=== PATIENT | female | born 1990 | race Hispanic/Latino ===

== ENCOUNTER 2017-09-08 22:04 | Emergency (ER) | payer SELFPAY ==
[2017-09-08 23:32] LABS: BASOPHILS % (AUTO) 0.5 % (0.0-5.0); EOSINOPHILS % (AUTO) 1.2 % (0.0-8.0); LYMPHOCYTES % (AUTO) 29.6 % (21.0-51.0); MEAN CORPUSCULAR HEMOGLOBIN 30.6 pg (27.0-33.0); MEAN CORPUSCULAR HGB CONC 34.3 g/dL (32.0-36.0); MEAN CORPUSCULAR VOLUME 89.2 fL (79-99); MONOCYTES % (AUTO) 6.1 % (3.0-13.0); NEUTROPHILS % (AUTO) 62.6 % (40.0-77.0); PLATELET COUNT (AUTO) 219 K/uL (130-400); RED BLOOD CELL COUNT(AUTO) 4.37 MIL/uL (4.00-5.50); RED CELL DISTRIBUTION WIDTH 12.7 % (11.0-15.5); WHITE BLOOD COUNT (AUTO) 6.8 K/uL (4.8-10.8)
[2017-09-08 23:39] LABS: CREATININE 0.6 mg/dL (0.5-1.5); POTASSIUM 4.8 mmol/L (3.5-5.1)
[2017-09-08] MEDS ORDERED: SODIUM CHLORIDE 0.9% 1000ML 1,000 ML IV ONE (23:41)
[2017-09-08] MEDS ORDERED: ACETAMINOPHEN EXTRA STRENGTH 500 MG TABLET ONE (23:42)
[2017-09-08 23:44] LABS: ALBUMIN 4.3 g/dL (3.5-5.0); BILIRUBIN,TOTAL 0.4 mg/dL (0.2-1.0)
[2017-09-09 01:21] LABS: HCG,QUAL RESULT NEGATIVE (NEGATIVE)
[2017-09-09 01:25] LABS: BILIRUBIN,URINE Small (NEGATIVE); GLUCOSE, URINE (UA) Negative (NEGATIVE); KETONES,URINE Negative (NEGATIVE); LEUKOCYTE ESTERASE ,URINE Moderate (NEGATIVE); NITRATE,URINE Positive (NEGATIVE); OCCULT BLOOD,URINE Moderate (NEGATIVE); PROTEIN,URINE POS 2+ (NEGATIVE); UROBILINOGEN,URINE 0.2 mg/dL (0.2-1.0)
[2017-09-09 01:26] LABS: APPEARANCE,URINE TURBID (CLEAR); COLOR,URINE Red (YELLOW)
[2017-09-09 01:27] LABS: BACTERIA,URINE None Seen /HPF (None Seen); RBC,URINE Full Field /HPF (0-1); SQUAMOUS EPITHELIAL CELL,UR Few /LPF (0-2)
[2017-09-09 01:31] LABS: AMPHET/METH SCREEN,URINE NEGATIVE (NEGATIVE); BARBITURATE SCREEN, URINE NEGATIVE (NEGATIVE); BENZODIAZEPINES SCREEN,URINE NEGATIVE (NEGATIVE); CANNABINOID SCREEN,URINE NEGATIVE (NEGATIVE); COCAINE SCREEN,URINE NEGATIVE (NEGATIVE); OPIATE SCREEN,URINE NEGATIVE (NEGATIVE); PHENCYCLIDINE SCREEN,URINE NEGATIVE (NEGATIVE)
[2017-09-09] MEDS ORDERED: DiphenhydrAMINE HCL 50 MG/ML VIAL ONE ×2 (01:42→01:46)
[2017-09-09] MEDS ORDERED: PROCHLORPERAZINE EDISYLATE 10 MG/2 ML VIAL ONE ×2 (01:42→01:46)
== END 2017-09-09 02:49 | disposition home or self-care (01) ==
LOC: EDH 22:04
DX: R56.9 Unspecified convulsions (principal); R51 Headache; F43.10 Post-traumatic stress disorder, unspecified; Z88.6 Allergy status to analgesic agent
CPT/HCPCS: 36415; 70450; 80053; 80305; 81001; 81025; 85025; 96361; 96374; 96375; 99285; J0780 ×2; J1200 ×2; J7030

== ENCOUNTER 2019-04-09 08:39 | Emergency (ER) | payer MEDICAID ==
[2019-04-09] MEDS ORDERED: DEXAMETHASONE SOD PHOSPHATE 10MG/ML 1ML VIAL ONE (09:02)
[2019-04-09] MEDS ORDERED: LIDOCAINE HCL-MPF 1% 2ML VIAL ONE (09:02)
[2019-04-09] MEDS ORDERED: CEFTRIAXONE SODIUM 1 GM ONE (09:02)
== END 2019-04-09 10:12 | disposition home or self-care (01) ==
LOC: EDH 08:39
DX: J06.9 Acute upper respiratory infection, unspecified (principal); Z87.891 Personal history of nicotine dependence; Z90.710 Acquired absence of both cervix and uterus; Z90.49 Acquired absence of other specified parts of digestive tract; Z98.890 Other specified postprocedural states; Z88.6 Allergy status to analgesic agent
CPT/HCPCS: 96372 ×2; 99284; J0696; J1100; J3490

== ENCOUNTER 2019-06-27 07:09 | Day surgery (SDC) | payer MEDICAID ==
[~2019-06-27] VITALS: Ht 170.2 cm; Wt 59.0 kg
[~2019-06-27 07:09] MED LIST: ALPR0.5T PO; COQ10 PO; IRON1CAP30 PO; PROM25TA7 PO; SODIUM CHLORIDE 0.9% 1000ML 1,000 ML IV ONE
[2019-06-27 07:57] VITALS: BP 101/72
[2019-06-27] MEDS ORDERED: PROPOFOL 10 MG/ML 20ML VIAL IV ONE (09:16)
[2019-06-27 09:36] VITALS: BP 112/67
[2019-06-27 09:50] VITALS: BP 131/68
== END 2019-06-27 10:02 | disposition home or self-care (01) ==
LOC: ENDO 07:09 → DAH 07:09 → ENDO 10:02
PROVIDERS: ATTEND Internal Medicine
DX: R10.13 Epigastric pain (principal); K31.89 Other diseases of stomach and duodenum; R11.2 Nausea with vomiting, unspecified; F41.9 Anxiety disorder, unspecified; F32.9 Major depressive disorder, single episode, unspecified; Z90.49 Acquired absence of other specified parts of digestive tract; Z98.890 Other specified postprocedural states; Z79.899 Other long term (current) drug therapy; Z90.710 Acquired absence of both cervix and uterus; Z88.8 Allergy status to other drugs, medicaments and biological substances
CPT/HCPCS: 43239; A4215; A4221; A4222; A4223; A4606; A4620; A4663; J2704; J7030

== ENCOUNTER 2024-11-08 17:05 | Observation (INO) | payer MEDICAID ==
[~2024-11-08] VITALS: Ht 175.3 cm; Wt 80.6 kg
[~2024-11-08 17:05] MED LIST changes: -SODIUM CHLORIDE 0.9% 1000ML 1,000 ML IV ONE
--- NOTE | 2024-11-08 17:28 | ERN ---
ED Note History of Present Illness Stated Complaint: CP, COUGH, HEADACHE, BODY ACHES Chief Complaint: Flu Symptoms Time Seen by MD: 17:05 Time Seen by Midlevel: 17:05 Dictation: The patient is a 34-year-old female with a history of IBS, hysterectomy, c holecystectomy who presents to the emergency department with complaints of headache, body aches, nonproductive cough, on and off fevers, chest pain with coughing onset over a week ago. Allergies: Coded Allergies: ibuprofen (Unverified Allergy, Unknown, 06/19/19) ketorolac (Unverified Allergy, Unknown, 06/19/19) tramadol (Unverified Allergy, Unknown, 06/19/19) Home Meds Reported Medications Promethazine HCl (Promethazine HCl) 25 Mg Tablet, 25 MG PO QIDP PRN for NAUSEA, TAB 06/26/19 [Coq10] No Conflict Check, 1 TAB PO BID 06/26/19 Iron Fum & Ps Cmp/Vit C & B (Integra Capsule) 1 Each Capsule, 1 EACH PO DAILY, CAP 06/26/19 Alprazolam (Xanax) 0.5 Mg Tablet, 0.5 MG PO BID, TAB 06/26/19 Past Medical History Past Medical History: No Pertinent History Surgical History: Appendectomy, Hysterectomy, Cholecystectomy, RN Note Reviewed/Agreed w/PFSH: Yes Review of System Dictation Constitutional: Negative for ,chills, and weight loss positive for fever Eyes: Negative for injury, pain,redness, and discharge ENT: Negative for injury,pain or swelling Cardiovascular: Negative for palpitations, and edema positive for chest pain Respiratory: Negative for shortness of breath, , and wheezing, positive for cough Abdomen/GI: Negative for abdominal pain, nausea, vomiting, diarrhea, and constipation Back: Negative for injury and pain : Negative for injury, bleeding and discharge MS/Extremity: Negative for injury and deformity Skin: Negative for rash, and discoloration Neuro: Negative for weakness, numbness, tingling, and seizure positive for headache Psych: Negative for suicide ideation, homicidal ideation, and hallucinations Initial Vital Sign VS Vital Signs Date Time Temp Pulse Resp B/P (MAP) Pulse Ox O2 Delivery O2 Flow Rate FiO2 11/08/24 17:12 99.3 107 20 114/83 96 Room Air 0 Physical Exam Dictation Vital Signs reviewed General Appearance: Alert, oriented x 3, no acute distress, well developed, nourished. Head and Face: non-traumatic. Eyes: PERRL, pink conjunctivas, eyelid no trauma, anterior chamber with arcus senilis. Ears: Pinnas intact and no signs of trauma or erythema ear canals clear and no discharge TM no erythema Nose: No discharge, no bleeding. Oropharynx: Mouth normal, tongue pink. pharynx clear,no erythema, tonsils no exudates, no abscesses noted, mucous membrane moist Neck: Supple, non-tender, no thyromegaly, no masses, no JVD, no bruits Breast:Deferred Chest:No tenderness, no crepitus, no paradoxical movement, no retractions Lungs:Clear, well-ventilated, symmetric, no rales, no wheezing, no rhonchi, no stridor, good breath sounds bilaterally Heart: Regular rate, regular rhythm, no murmur, no gallops Vascular: no peripheral edema, Abdomen: Soft, positive bowel sounds, nondistended, no guarding, nontender, no rebound, no masses no hepatomegaly, no splenomegaly, no Hopkins's sign, no hernias. Rectal: Deferred Genital: Deferred Neurological: Normal speech, motor function intact, sensory function intact Musculoskeletal: Neck nontender, full range of motion, back nontender, full range of motion, Extremities: nontender, full range of motion Skin: Color pink, dry, no turgor, no rash, no lacerations, no abrasions, no contusions. Lymphatic: Deferred Results (Laboratory/Radiology) Laboratory/Radiology Laboratory Tests Test 11/08/24 17:18 11/08/24 19:05 Influenza Type A Antigen Negative For Type A Influenza Type B Antigen Negative For Type B SARS-CoV-2 Antigen (Rapid) PRESUMPTIVE NEGATIVE White Blood Count 8.5 K/uL (4.8-10.8) Red Blood Count 4.79 MIL/uL (4.00-5.50) Hemoglobin 14.4 g/dL (12.0-16.0) Hematocrit 42.5 % (36-48) Mean Corpuscular Volume 88.7 fL (79-99) Mean Corpuscular Hemoglobin 30.1 pg (27.0-33.0) Mean Corpuscular Hemoglobin Concent 33.9 g/dL (32.0-36.0) Red Cell Distribution Width 12.3 % (11.0-15.5) Platelet Count 221 K/uL (130-400) Mean Platelet Volume 10.2 fL (7.5-10.5) Immature Granulocyte % (Auto) 0.4 % (0-1) Neutrophils (%) (Auto) 78.3 % (40.0-77.0) H Lymphocytes (%) (Auto) 13.5 % (21.0-51.0) L Monocytes (%) (Auto) 6.9 % (3.0-13.0) Eosinophils (%) (Auto) 0.7 % (0.0-8.0) Basophils (%) (Auto) 0.2 % (0.0-5.0) Neutrophils # (Auto) 6.7 K/uL (1.8-7.7) Lymphocytes # (Auto) 1.2 K/uL (1.0-4.8) Monocytes # (Auto) 0.6 K/uL (0.1-1.0) Eosinophils # (Auto) 0.06 K/uL (0.00-0.70) Basophils # (Auto) 0.02 K/uL (0.00-0.20) Absolute Immature Granulocyte (auto 0.03 K/uL (0-1) Nucleated Red Blood Cells 0.0 % (0.0-0.19) Sodium Level 137 mmol/L (136-145) Potassium Level 3.9 mmol/L (3.5-5.1) Chloride Level 101 mmol/L (101-111) Carbon Dioxide Level 23 mmol/L (21-32) Blood Urea Nitrogen 10 mg/dL (7-18) Creatinine 0.9 mg/dL (0.5-1.0) Glomerular Filtration Rate Calc 86 mL/min (>90) Random Glucose 93 mg/dL (70-105) Total Calcium 9.5 mg/dL (8.5-10.1) Total Creatine Kinase 69 U/L (21-232) Troponin I High Sensitivity < 4 ng/L (4-50) L REASON: cough ORDERING PHYSICIAN: GUNJAN LAINEZ PROCEDURE: CXR1VW - CHEST 1VW PORTABLE CHEST RADIOGRAPH INDICATION: cough COMPARISON: None FINDINGS: Heart size is normal. The pulmonary vascularity and left hilum appear normal. Coalescent right perihilar opacities. No significant pleural effusion noted. No pneumothorax detected. IMPRESSION: Right perihilar pneumonia. Follow-up chest radiograph is advised in order to ensure resolution. Labs Reviewed?: Yes EKG: (+) rhythm (Sinus rhythm) EKG Comment: Date:11/08/2024 Time:1740 Ventricular rate:94 CT interval:144 QRS duration:88 QT/QTc:337 EKG interpretation: Sinus rhythm Reviewed by ED Attending who STEMI ED Course ED Course Orders Procedure Category Date Status Time Covid19 (Sars Antigen LAB 11/08/24 Complete Rapid) 17:23 Influenza Type A & B, LAB 11/08/24 Complete Rapid 17:23 Acetaminophen 500mg PHA 11/08/24 Complete Tab (Tylenol 500mg T 17:30 Chest 1vw RAD 11/08/24 Resulted 17:23 12 Lead Ekg Tracing- EKG 11/08/24 Complete Technical 17:23 Cbc With Differential LAB 11/08/24 Complete 18:53 Troponin I High LAB 11/08/24 Complete Sensitivity 18:53 0.9%Nacl 1000ml (Ns PHA 11/08/24 Complete 1000ml) 19:00 Creatine Kinase, Total LAB 11/08/24 Complete 18:53 Basic Metabolic Panel LAB 11/08/24 Complete 18:53 Methylprednisolone PHA 11/08/24 Complete Succ 125mg (Solu-Medr 19:00 Ipratropium/Albuterol PHA 11/08/24 Complete Neb (Duoneb) 19:00 Ceftriaxone 1g Vial PHA 11/08/24 Complete (Rocephine 1g Inj) 19:00 Azithromycin 500mg+Ns PHA 11/08/24 Complete 250ml (Azithromyci 18:53 Admit Orders ADM 11/08/24 Verified 20:03 Edm Admit Bridge Order ADM 11/08/24 Verified 20:03 Current Medications Medications (Trade) Dose Ordered Sig/Jesús Route PRN Reason Start Time Stop Time Status Last Admin Dose Admin Acetaminophen (TYLenol 500MG TAB) 1,000 mg ONCE ONCE PO 11/08/24 17:30 11/08/24 17:31 DC 11/08/24 17:32 Albuterol (DUOneb) 1 UDVIAL ONCE ONCE IH 11/08/24 19:00 11/08/24 19:01 DC 11/08/24 19:53 Azithromycin 250 ml @ 250 mls/hr STAT STAT IVPB 11/08/24 18:53 11/08/24 19:52 DC 11/08/24 19:21 Ceftriaxone Sodium (ROCEphine 1G INJ) 1 gm ONCE ONCE IVPB 11/08/24 19:00 11/08/24 19:01 DC 11/08/24 19:13 Methylprednisolone Sodium Succinate (Solu-medROL 125MG) 125 mg ONCE ONCE IVP 11/08/24 19:00 11/08/24 19:01 DC 11/08/24 19:13 Sodium Chloride 1,000 ml @ 0 mls/hr ONCE ONCE IV 11/08/24 19:00 11/08/24 19:01 DC 11/08/24 19:13 Vital Signs Date Time Temp Pulse Resp B/P (MAP) Pulse Ox O2 Delivery O2 Flow Rate FiO2 11/08/24 19:54 92 18 11/08/24 17:32 99.3 11/08/24 17:12 99.3 107 20 114/83 96 Room Air 0 HEART Score Response (Comments) Value History: Low suspicion (0) 0 EKG: Normal 0 Age: < 45yrs (0) 0 Risk Factors: No known risk factors (0) 0 Initial Troponin: Normal limit (0) 0 Total 0 Medical Decision Making MDM MDM: The patient is a 34-year-old female with a history of IBS, hysterectomy, cholecystectomy who presents to the emergency department with complaints of headache, body aches, nonproductive cough, on and off fevers, chest pain with coughing onset over a week ago. CBC showed no leukocytosis, no anemia, chemistry showed no electrolyte imbalance, negative troponin, negative CK chest x-ray showed right perihilar pneumonia. Patient will be admitted for further management and treatment. Differential diagnosis: Pneumonia, pneumothorax, upper respiratory infection, COVID-19 Comorbidities: Hysterectomy, IBS, cholecystectomy Tests considered and not ordered secondary to shared decision making include: none Previous outside records reviewed: none Risk of complication and/or morbidity or mortality of patient management: The patient meets criteria for admission. Need for emergency major/minor surgery: No There are no social concerns with this patient. I independently interpreted the tests I ordered (labs, urinalysis, etc.). I discussed the case with the hospitalist for admission. [facility] who accepts admission I discussed the case with the following specialists: none. Historian: [email or web address]. I independently interpreted imaging studies and EKGs that I ordered (US, CT, XR, EKG, etc.). External chart review: none. Medical management and examination interpretation discussions were had by me with other qualified healthcare professionals as indicated for the patient's care. DX & DISP Disposition: Inpatient Decision to Admit Date: Nov 08, 2024 Decision to Admit Time: 20:08 Departure Impression: Primary Impression: Pneumonia Condition: Stable Referrals: ANITRA NO MD (PCP) I have reviewed the case, and I agree with, Diagnosis and Plan GUNJAN LAINEZ [facility] Nov 08, 2024 17:28
[2024-11-08] MEDS: acetaMINOPHEN 500 MG TABLET PO ONE (17:32)
--- NOTE | 2024-11-08 17:36 | EKG ---
[facility] Test Date: 2024-11-08 Test Time: 17:40:08 Pat Name: JONI HARRISON Department: [facility] Room: 430 Gender: Female Plumber Helper: [phone] : 1990 Requested By: GUNJAN LAINEZ Order Number: [id number] Reading MD: Gi Pate Measurements Intervals [place] Rate: 94 P: 55 [place]: 144 QRS: 41 QRSD: 88 T: 8 QT: 337 QTc: 423 Interpretive Statements Sinus rhythm No previous ECG available for comparison Electronically Signed On 11-09-2024 10:59:01 CDT by Gi Pate Please click the below link to view image of tracing.
[2024-11-08 18:06] LABS: COVID19 (SARS ANTIGEN RAPID) PRESUMPTIVE NEGATIVE (NEGATIVE); INFLUENZA TYPE A Negative For Type A (NEGATIVE); INFLUENZA TYPE B Negative For Type B (NEGATIVE)
[2024-11-08 18:43] VITALS: TEMP 98.4
--- NOTE | 2024-11-08 19:07 | HMCIMG ---
PORTABLE CHEST RADIOGRAPH INDICATION: cough COMPARISON: None FINDINGS: Heart size is normal. The pulmonary vascularity and left hilum appear normal. Coalescent right perihilar opacities. No significant pleural effusion noted. No pneumothorax detected. IMPRESSION: Right perihilar pneumonia. Follow-up chest radiograph is advised in order to ensure resolution.
[2024-11-08] MEDS: cefTRIAXone 1G VIAL IVPB ONE (19:13)
[2024-11-08] MEDS: 0.9%NACL 1000ML 1,000 ML IV ONE (19:13)
[2024-11-08] MEDS: Solu-medROL 125MG VIAL IVP ONE (19:13)
[2024-11-08 19:17] LABS: BASOPHILS # (AUTO) 0.02 K/uL (0.00-0.20); BASOPHILS % (AUTO) 0.2 % (0.0-5.0); EOSINOPHILS # (AUTO) 0.06 K/uL (0.00-0.70); EOSINOPHILS % (AUTO) 0.7 % (0.0-8.0); HEMATOCRIT 42.5 % (36-48); IMMATURE GRANULOCYTE ABSOLUTE 0.03 K/uL (0-1); LYMPHOCYTES # (AUTO) 1.2 K/uL (1.0-4.8); LYMPHOCYTES % (AUTO) 13.5 % (21.0-51.0); MEAN CORPUSCULAR HEMOGLOBIN 30.1 pg (27.0-33.0); MEAN CORPUSCULAR HGB CONC 33.9 g/dL (32.0-36.0); MEAN CORPUSCULAR VOLUME 88.7 fL (79-99); MONOCYTES # (AUTO) 0.6 K/uL (0.1-1.0); MONOCYTES % (AUTO) 6.9 % (3.0-13.0); NEUTROPHILS # (AUTO) 6.7 K/uL (1.8-7.7); NEUTROPHILS % (AUTO) 78.3 % (40.0-77.0); PLATELET COUNT (AUTO) 221 K/uL (130-400); RED BLOOD CELL COUNT(AUTO) 4.79 MIL/uL (4.00-5.50); RED CELL DISTRIBUTION WIDTH 12.3 % (11.0-15.5); WHITE BLOOD COUNT (AUTO) 8.5 K/uL (4.8-10.8)
[2024-11-08] MEDS: AZITHROMYCIN 500MG+NS 250ML 250 ML IVPB STA (19:21)
[2024-11-08 19:25] LABS: CREATININE 0.9 mg/dL (0.5-1.0); POTASSIUM 3.9 mmol/L (3.5-5.1)
[2024-11-08] MEDS: IpraTROPium/alBUTERol SULFATE 3 ML SOLUTION IH ONE (19:53)
[2024-11-08 19:54] VITALS: PULSE 92; RESP 18
--- NOTE | 2024-11-08 20:07 | NUR ---
TRANSFERED CARE TO [place] AT THIS TIME
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
--- NOTE | 2024-11-08 20:55 | NUR ---
PHARMACY CALLED AT THIS TIME, ORDER FOR TORADOL, PATIENT IS ALLERGIC
[2024-11-08] MEDS ORDERED: cefTRIAXone 1G VIAL 1 GM in 0.9%NACL 50ML 50 ML IV SCH (21:00)
[2024-11-08] MEDS ORDERED: PoTASSium chl 10% ELIXIR 20MEQ 20 MEQ/15 ML UDCUP PO PRN (21:00)
[2024-11-08] MEDS ORDERED: MAGNESIUM 2GM PREMIX 50ML 50 ML IV PRN (21:00)
[2024-11-08] MEDS ORDERED: ketOROlac 15MG/ML VIAL (15MG/ML) IV PRN (21:00)
[2024-11-08] MEDS ORDERED: PoTASSium chloRIDE 20MEQ/100ML 100 ML IV PRN (21:00)
[2024-11-08] MEDS ORDERED: NITROGLYCERIN 0.4 MG SL TAB SL PRN (21:00)
--- NOTE | 2024-11-08 21:09 | HP ---
[facility] PHYS[facility] Date of Service: Nov 08, 2024 Time of Service: 20:38 PCP: Julieta Wick HISTORY OF PRESENT ILLNESS: This is a 34-year-old female with past medical history of chronic back and neck pain, irritable bowel syndrome and asthma who presents to the ED for multiple complaints such as body aches, on and off fever, chest pain, cough, nausea ,shortness of breath and diarrhea started for almost 9 days and patient did not seek medical help until today.Patient reports she has not been eating and drinking well because she will throw up every time she eat or drink something so she stopped she said.Patient states she has occasional greenish phlegm . Patient states sampson is updated with her flu and Covid vaccine.Patient denies recent travel and no sick contacts. Seen and examined patient in the ER ,awake,alert and coherent appears uncomfortable and complaining of shortness of breath.Patient denies headache,palpitation,vomiting and abdominal pain.Patient has expiratory wheezes to right lung field per auscultation. Latest vital signs temperature 99.3, heart rate 96, blood pressure 116/72 saturation 98% on room air. Labs : gena trophils 78 and lymphocytes 13, the rest of the CBC is normal. Chemistry is normal. Troponin less than four. Influenza type a and B negative, SARs COVID negative. ECG result revealed sinus rhythm heart rate 94. Chest x-ray result revealed right perihilar pneumonia. While in the ER patient received Rocephin 1 g IV, azithromycin IV, albuterol DuoNeb, Solu-Medrol 125 mg IV and Tylenol 1000 mg p.o.. We will admit patient for further medical management. REVIEW OF SYSTEMS CONSTITUTIONAL: Complain of fever chills Denies or night sweats. No unintentional weight loss reported. NEUROLOGICAL: Denies headache, amaurosis fugax, motor weakness, sensory deficit, vertigo/spinning sensation, gait abnormalities, or tremors. ENT: No hearing loss, otalgia, otorrhea, rhinitis, rhinorrhea, hoarseness, or sore throat. CARDIOVASCULAR: Complain of chest pain Denies dyspnea on exertion, orthopnea, paroxysmal nocturnal dyspnea, palpitations, life-threatening arrhythmias, claudication. PULMONARY: Complain of productive cough and shortness of breaths Denies hemoptysis, pleuritic chest pain. SLEEP: Denies morning headaches, daytime somnolence or napping. Denies difficulty falling asleep, staying asleep, waking from sleep. Denies knowledge of snoring. GASTROINTESTINAL: Complain of nausea Denies any type of dysphagia to either liquids or solids. Denies vomiting, pyrosis, early satiety, abdominal pain, diarrhea, constipation, or changes in stool consistency or caliber. Denies coffee-ground emesis, hematemesis, hematochezia, or melanotic stools. GENITOURINARY: Denies frequency, urgency, nocturia, hematuria or incontinence (Storage/Irritative symptoms.) Low urinary stream, straining to void, urinary intermittency or hesitancy, splitting of the voiding stream, terminal dribbling. ENDOCRINOLOGIC: Denies polyuria, polydipsia, polyphagia or heat/cold intolerances. HEMATOLOGIC: Denies thrombophilia/previous clots, or coagulopathy/bleeding disorders. ONCOLOGIC: Denies personal history of malignancy. DERMATOLOGIC: Denies rashes or pruritus. PSYCHIATRIC: Denies any suicidal or homicidal ideation. Denies hallucinations. PAST MEDICAL HISTORY: [IBS, asthma, chronic back and neck pain ] PAST SURGICAL HISTORY: [ x2, hysterectomy, appendectomy and cholecystectomy ] PAST SOCIAL HISTORY: [Patient lives with her kids. Patient denies alcohol tobacco and recreational drug use ] FAMILY HISTORY: [ Noncontributory ] Coded Allergies: ibuprofen (Unverified Allergy, Unknown, 06/19/19) ketorolac (Unverified Allergy, Unknown, 06/19/19) tramadol (Unverified Allergy, Unknown, 06/19/19) PHYSICAL EXAM GENERAL APPEARANCE: The patient is awake, alert, and oriented, in no acute cardiopulmonary distress. NEUROLOGICAL: Cranial nerves II-XII grossly intact. Motor is 5/5 in bilateral upper and lower extremities proximal to distal. No sensory deficits. HEENT: Face is symmetric. Pupils are equal and reactive. Extraocular movements are intact. NECK: Supple. No JVD. No thyromegaly. No submental, submandibular, pre- /postauricular, occipital or supraclavicular lymphadenopathy. CHEST: Normal chest expansion. No Telemetry. LUNGS: Expiratory wheezes on right lung field with diminished left lung per auscultation CARDIOVASCULAR: Regular. S1 and S2 normal. No appreciable rubs, murmurs or gallops. ABDOMEN: Soft, nontender, and nondistended. There is no rebound, voluntary guarding, or rigidity. : Deferred. No [place]. EXTREMITIES: Non-edematous and not cyanotic. No clubbing. Good capillary refill. SKIN: No skin breakdown. Vital Sign (Last 24 Hours) 11/08/24 11/08/24 17:32 20:35 Temp 99.3 Pulse 96 Resp 18 B/P (MAP) 116/72 Pulse Ox 98 O2 Delivery Room Air* O2 Flow Rate 0 FiO2 21 LABS: Laboratory: Test 11/08/24 19:05 11/08/24 17:18 Range/Units White Blood Count 8.5 4.8-10.8 K/uL Red Blood Count 4.79 4.00-5.50 MIL/uL Hemoglobin 14.4 12.0-16.0 g/dL Hematocrit 42.5 36-48 % Mean Corpuscular Volume 88.7 79-99 fL Mean Corpuscular Hemoglobin 30.1 27.0-33.0 pg Mean Corpuscular Hemoglobin Concent 33.9 32.0-36.0 g/dL Red Cell Distribution Width 12.3 11.0-15.5 % Platelet Count 221 130-400 K/uL Mean Platelet Volume 10.2 7.5-10.5 fL Immature Granulocyte % (Auto) 0.4 0-1 % Neutrophils (%) (Auto) 78.3 H 40.0-77.0 % Lymphocytes (%) (Auto) 13.5 L 21.0-51.0 % Monocytes (%) (Auto) 6.9 3.0-13.0 % Eosinophils (%) (Auto) 0.7 0.0-8.0 % Basophils (%) (Auto) 0.2 0.0-5.0 % Neutrophils # (Auto) 6.7 1.8-7.7 K/uL Lymphocytes # (Auto) 1.2 1.0-4.8 K/uL Monocytes # (Auto) 0.6 0.1-1.0 K/uL Eosinophils # (Auto) 0.06 0.00-0.70 K/uL Basophils # (Auto) 0.02 0.00-0.20 K/uL Absolute Immature Granulocyte (auto 0.03 0-1 K/uL Nucleated Red Blood Cells 0.0 0.0-0.19 % Sodium Level 137 136-145 mmol/L Potassium Level 3.9 3.5-5.1 mmol/L Chloride Level 101 101-111 mmol/L Carbon Dioxide Level 23 21-32 mmol/L Blood Urea Nitrogen 10 7-18 mg/dL Creatinine 0.9 0.5-1.0 mg/dL Glomerular Filtration Rate Calc 86 >90 mL/min Random Glucose 93 70-105 mg/dL Total Calcium 9.5 8.5-10.1 mg/dL Total Creatine Kinase 69 21-232 U/L Troponin I High Sensitivity < 4 L 4-50 ng/L Influenza Type A Antigen Negative For Type A NEGATIVE Influenza Type B Antigen Negative For Type B NEGATIVE SARS-CoV-2 Antigen (Rapid) PRESUMPTIVE NEGATIVE NEGATIVE Current Medications Medications (Trade) Dose Ordered Sig/Jesús Route PRN Reason Start Time Stop Time Status Last Admin Dose Admin Azithromycin 250 ml @ 250 mls/hr STAT STAT IVPB 11/08/24 18:53 11/08/24 19:52 DC 11/08/24 19:21 250 MLS/HR DIAGNOSTICS / RADIOLOGY: [ ] ASSESSMENT: Chest pain unspecified POA Right perihilar pneumonia POA Acute Asthma POA PLAN: We will admit patient in PCCU We will start patient on clear liquid diet and advanced as tolerated We will start NS @ 75 ml / hr x2 bags and re evaluate We will start patient on Rocephin 1 g IV and azithromycin IV for broad-spectrum coverage We will start patient on Solu-Medrol 40 mg IV b.i.d. We will start on Famotidine 20 mg IV bid for GI prophylaxis We will replace electrolytes as needed per protocol May use oxygen supplementation to keep saturation above 92% Maze continue albuterol neb treatment q.4 hours for shortness of breath and cough We will add prn medication for fever,pain,cough ,nausea and vomiting We will seek pulmonology consultation We will obtain CT chest without contrast We will request labs in am Further orders to follow depending on above results Case discussed with attending physician and came up with above treatment and plan of care. ADVANCED CARE PLANNING 1. Which of the following were discussed? Hospice Care - No Therapeutic options - Yes Advance Directives - No Other discussions - 2. Discussed with who? Patient 3. Voluntary nature of this service was explained to the patient? Yes 4. Amount of time spent - ___25____ 5. Reviewed by Physician? (if this service was performed by NPP) Yes Patient seen and examined by me. Agree with note by MACHINING DEPARTMENT SUPERVISOR SEE ADDITIONAL ORDERS PER CHART DISCUSSED WITH NURSING STAFF JORI GIANG MANAGEMENT INTERN Nov 08, 2024 21:09
[2024-11-08] MEDS: Solu-medROL 40MG VIAL IVP SCH (21:32)
[2024-11-08] MEDS: 0.9%NACL 1000ML 1,000 ML IV SCH (21:32)
[2024-11-08] MEDS: FAMOTIDINE 20MG VIAL IV SCH (21:33)
[2024-11-08] MEDS: morPHINE 2 MG SYG IVP ONE (22:23)
[2024-11-08] MEDS: IpraTROPium/alBUTERol SULFATE 3 ML SOLUTION IH SCH (22:56)
[2024-11-08 22:58] VITALS: PULSE 90; RESP 18; O2SAT 95
[2024-11-08 23:35] VITALS: BP 130/74; PULSE 105; RESP 20; TEMP 97.9
--- NOTE | 2024-11-08 23:35 | NUR ---
RECEIVED PATIENT FROM ER VIA STRETCHER. PATIENT ABLE TO AMBULATE WELL TO HOSPITAL BED. PATIENT AAOX3, NO S/S OF DISTRESS. TELE MONITOR PLACED ON PATIENT. BED IN LOW POSITION. CALL CHOI WITHIN REACH
[2024-11-09] VITALS (12 sets, daily range): BP systolic 100–123; BP diastolic 54–74; PULSE 73–113; RESP 18–22; TEMP 97.8–98.4; O2SAT 95–96
--- NOTE | 2024-11-09 00:34 | HMCIMG ---
Shortness of breath CT CHEST W/O CONTRAST HISTORY: No additional history given. COMPARISON: None TECHNIQUE: Multiple sequential axial images of the chest were obtained from the thoracic inlet through upper abdomen. Patient was not given contrast through intravenous route. FINDINGS: Right lower lobe consolidated pneumonia is seen predominantly involving the superior segment. No pleural effusion or pericardial effusion is seen. There is no evidence of pneumothorax. There are normal size mediastinal and hilar lymph nodes. The heart is not enlarged. Degenerative changes of the thoracolumbar spine are present. There is no evidence of adrenal nodule. Post cholecystectomy changes are seen. IMPRESSION: 1. Right lower lobe consolidated pneumonia is seen predominantly involving the superior segment. CT was performed with one or more following dose reduction techniques: automated exposure control, adjustment of the mA and kv according to patient's size, or use of a iterative reconstruction technique.
--- NOTE | 2024-11-09 00:58 | NUR ---
RETURNED MED PATIENT REFUSED PO PAIN MEDS. STATED THEY WOULD MAKE HER SICK SINCE SHE DID NOT EAT ANYTHING. PATIENT IN ON CLEAR DIET. OFFERED JELLO AND JUICES SO THAT SHE CAN TAKE HER MED. PATIENT REFUSED. MED RETURNED AT THIS TIME
--- NOTE | 2024-11-09 02:00 | NUR ---
PATIENT CROUCHING ON THE SIDE OF BED CRYING. PATIENT ASKED FOR PAIN MED. STATED SHE WOULD TAKE THE PO MEDICATION. MEDICATION ADMINISTERED TO PATIENT AND PATIENT HELPED INTO BED. PATIENT LYING PRONE BECAUSE THAT FEELS BETTER FOR HER BACK. BED IN LOW POSITION. CALL CHOI WITHIN REACH
[2024-11-09] MEDS: HYDROcodone/APAP 5/325 1 TAB TABLET PO PRN (02:19)
[2024-11-09 03:56] LABS: BASOPHILS # (AUTO) 0.01 K/uL (0.00-0.20); BASOPHILS % (AUTO) 0.1 % (0.0-5.0); HEMATOCRIT 36.9 % (36-48); IMMATURE GRANULOCYTE ABSOLUTE 0.03 K/uL (0-1); LYMPHOCYTES # (AUTO) 0.5 K/uL (1.0-4.8); LYMPHOCYTES % (AUTO) 7.9 % (21.0-51.0); MEAN CORPUSCULAR HEMOGLOBIN 29.9 pg (27.0-33.0); MEAN CORPUSCULAR HGB CONC 33.3 g/dL (32.0-36.0); MEAN CORPUSCULAR VOLUME 89.8 fL (79-99); MONOCYTES # (AUTO) 0.1 K/uL (0.1-1.0); MONOCYTES % (AUTO) 1.2 % (3.0-13.0); NEUTROPHILS # (AUTO) 6.2 K/uL (1.8-7.7); NEUTROPHILS % (AUTO) 90.4 % (40.0-77.0); PLATELET COUNT (AUTO) 199 K/uL (130-400); RED BLOOD CELL COUNT(AUTO) 4.11 MIL/uL (4.00-5.50); RED CELL DISTRIBUTION WIDTH 12.1 % (11.0-15.5); WHITE BLOOD COUNT (AUTO) 6.9 K/uL (4.8-10.8)
[2024-11-09 04:27] LABS: ALANINE AMINOTRANSFERASE 53 U/L (12-78); ALBUMIN 3.2 g/dL (3.5-5.0); ASPARTATE AMINOTRANSFERASE 10 U/L (10-37); BILIRUBIN,TOTAL 0.3 mg/dL (0.2-1.0); CARBON DIOXIDE 22 mmol/L (21-32); CHLORIDE 105 mmol/L (101-111); CREATINE KINASE, TOTAL 56 U/L (21-232); CREATININE 0.8 mg/dL (0.5-1.0); GLOMERULAR FILTR. RATE CALC 99 mL/min (>90); GLUCOSE,RANDOM 148 mg/dL (70-105); POTASSIUM 3.6 mmol/L (3.5-5.1); SODIUM SERUM 139 mmol/L (136-145); TOTAL PROTEIN, SERUM 7.5 g/dL (6.0-8.3); UREA NITROGEN, BLOOD 9 mg/dL (7-18)
[2024-11-09 05:13] LABS: WBC MORPHOLOGY CONSISTENT W/DIFF
[2024-11-09] MEDS ORDERED: PROM25TA7 PO (05:33)
[2024-11-09] MEDS ORDERED: DICY20TA3 PO (05:33)
[2024-11-09] MEDS ORDERED: LINA290C PO (05:33)
[2024-11-09] MEDS ORDERED: CYCL-309 PO (05:33)
[2024-11-09] MEDS ORDERED: LACT-441 PO (05:33)
[2024-11-09 05:44] LABS: ERYTHROCYTE SEDIMENTATION RATE 55 MM/HR (0-20)
[2024-11-09] MEDS: PoTASSium chloRIDE 20MEQ ER 20 MEQ ERTAB PO PRN (05:51)
--- NOTE | 2024-11-09 08:00 | NUR ---
ANXIETY Patient very anxious. Plan of care reviewed with patient and written on communication board. Repositioned, distraction and lights dimmed. Anxiety improved. Addendum: 11/09/24 at 2009 by YUNI BAXTER RN RN Amended: Links added.
--- NOTE | 2024-11-09 08:00 | NUR ---
LOOSE STOOL/ DX: IBS Patient reports loose stools prior to admission and x 1 yesterday. Also states that she has IBS. MD will be notified for collection of stool per protocol. Addendum: 11/09/24 at 2020 by YUNI BAXTER RN RN Amended: Links added.
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
[2024-11-09] MEDS: SODIUM CHLORIDE 3% FOR INHALATION 4 ML/AMP VIAL.NEB IH ONE (10:15)
--- NOTE | 2024-11-09 10:47 | NUR ---
ANXIETY Patient up to bathroom. AMPOULE FILLER AND SEALER noted patient unsteady on feet and assisted to toilet. Assessment performed with vital signs as follows: P=113; BP = 123/74; Respirations = 22; Temp = 97.9; Blood glucose = 130. Patient anxious, shaky. Reports she has had diarrhea for the past 8 days. Assisted to bed x 2 staff. Light massage performed, distraction, and lights dimmed. bed alarm on. Call light in reach. Will continue to monitor.
--- NOTE | 2024-11-09 12:00 | NUR ---
PHYSICIAN ROUNDING Reported patient anxiety. Loose stools, IBS, and history of reported narcotic use in the home setting. New orders received. Addendum: 11/09/24 at 2023 by YUNI BAXTER RN RN Prescribed narcotic use per patient report
--- NOTE | 2024-11-09 12:23 | CONS ---
[facility] CONSULTATION NOTE Date Patient Seen: Nov 09, 2024 Time of Visit: 12:11 Supervising Physician: SILVERIO Reason for Consultation: Pneumonia[ ] Primary Care Physician: Dr Rendon ([facility]) Outpatient Specialists: [ ] Inpatient Consults: [BIS PROBLEM LIST: Acute on chronic asthma exacerbation Right perihilar pneumonia Chest pain unspecified POA IBS Chronic neck/back pain PLAN SUMMARY: Supplemental oxygen as needed Duo nebs every 4 hours Pulmicort b.i.d. Rocephin Azithromycin Solu-Medrol 40 mg every8 hours times 24 hours Montelukast 10 mg daily Tessalon Perles t.i.d. oral HPI: Christina Harrison is a 34-year-old female with past medical history of chronic back and neck pain, irritable bowel syndrome and asthma who presents to the ED for multiple complaints such as body aches, on and off fever, chest pain, cough, nausea ,shortness of breath and diarrhea started for almost 9 days and patient did not seek medical help until today. Patient reports she was caring for her ill son and has a ignored her own health in the past years. Patient does not compliant with her inhalers and outpatient provider visits once again due to her caring for her ill son. Patient reports very poor appetite as she was unable to keep anything down and has emesis with meals. Patient states she has occasional greenish phlegm . Patient states she is updated with her flu and Covid vaccine. Patient denies recent travel and no sick contacts. Patient denies smoking, alcohol use or illicit drug use. Patient had a chest x-ray which showed right perihilar pneumonia and for this reason we are consulted. Patient is seen and evaluated at bedside. Patient is lying in bed resting quietly does not appear to be in any acute distress at this time. Patient remains on room air and denies chest discomfort, chest pain or dyspnea with exertion. Patient does complain of a cough. Vital signs are stable. Labs are within normal limits per minute troponins have been negative x4. requested a CT scan of the chest which shows right lower lobe consolidated pneumonia. Recommend continue Rocephin, azithromycin, duo nebs, Pulmicort, and high-dose steroids times 24 hours then transitioned to prednisone in a.m.. We will continue to follow with you. PAST MEDICAL HX: see above PAST SURGICAL HX: noncontributory SOCIAL HISTORY: No tobacco, ETOH, or illicit drug use Coded Allergies: ibuprofen (Unverified Allergy, Unknown, 06/19/19) ketorolac (Unverified Allergy, Unknown, 06/19/19) tramadol (Unverified Allergy, Unknown, 06/19/19) REVIEW OF SYSTEMS: 12 point ROS reviewed with patient. Pertinent positives mentioned above. Otherwise negative. PHYSICAL EXAM: GENERAL: alert, weak, awake oriented x 3 HEENT: EOMI, Sclera non icteric, moist mucosa NECK: Supple, no JVD, trachea midline LUNGS: Clear breath sounds bilaterally. No wheezes HEART: Regular rate and rhythm. Normal S1 and S2, without murmurs ABD: Abdomen soft, nontender. Bowel sounds present EXT: No clubbing cyanosis or edema NEURO: Alert and oriented to person, follows commands Vital Signs (last 8hr) Date Time Temp Pulse Resp B/P (MAP) Pulse Ox O2 Delivery O2 Flow Rate FiO2 11/09/24 10:47 97.9 113 22 123/74 96 Room Air 21 11/09/24 10:26 21 11/09/24 10:16 81 18 11/09/24 07:00 98.1 82 18 100/66 96 Room Air 21 11/09/24 06:17 85 18 11/09/24 06:14 85 18 N/A Room Air 21 LABS: Hematology Labs: Test 11/09/24 03:21 Range/Units White Blood Count 6.9 4.8-10.8 K/uL Red Blood Count 4.11 4.00-5.50 MIL/uL Hemoglobin 12.3 12.0-16.0 g/dL Hematocrit 36.9 36-48 % Mean Corpuscular Volume 89.8 79-99 fL Mean Corpuscular Hemoglobin 29.9 27.0-33.0 pg Mean Corpuscular Hemoglobin Concent 33.3 32.0-36.0 g/dL Red Cell Distribution Width 12.1 11.0-15.5 % Platelet Count 199 130-400 K/uL Mean Platelet Volume 10.3 7.5-10.5 fL Immature Granulocyte % (Auto) 0.4 0-1 % Neutrophils (%) (Auto) 90.4 H 40.0-77.0 % Lymphocytes (%) (Auto) 7.9 L 21.0-51.0 % Monocytes (%) (Auto) 1.2 L 3.0-13.0 % Eosinophils (%) (Auto) 0.0 0.0-8.0 % Basophils (%) (Auto) 0.1 0.0-5.0 % Neutrophils # (Auto) 6.2 1.8-7.7 K/uL Lymphocytes # (Auto) 0.5 L 1.0-4.8 K/uL Monocytes # (Auto) 0.1 0.1-1.0 K/uL Eosinophils # (Auto) 0.00 0.00-0.70 K/uL Basophils # (Auto) 0.01 0.00-0.20 K/uL Absolute Immature Granulocyte (auto 0.03 0-1 K/uL Nucleated Red Blood Cells 0.0 0.0-0.19 % White Cell Morphology Comment CONSISTENT W/DIFF Erythrocyte Sedimentation Rate 55 H 0-20 MM/HR Chemistry Labs: Test 11/09/24 10:48 11/09/24 09:00 11/09/24 03:21 Range/Units Whole Blood Glucose 130 H 70-110 MG/DL Troponin I High Sensitivity < 4 L 4-50 ng/L Sodium Level 139 136-145 mmol/L Potassium Level 3.6 3.5-5.1 mmol/L Chloride Level 105 101-111 mmol/L Carbon Dioxide Level 22 21-32 mmol/L Blood Urea Nitrogen 9 7-18 mg/dL Creatinine 0.8 0.5-1.0 mg/dL Glomerular Filtration Rate Calc 99 >90 mL/min Random Glucose 148 #H 70-105 mg/dL Lactic Acid Level 2.0 0.8-2.5 mmol/L Total Calcium 8.6 8.5-10.1 mg/dL Magnesium Level 2.00 1.80-2.40 mg/dL Total Bilirubin 0.3 0.2-1.0 mg/dL Aspartate Amino Transf (AST/SGOT) 10 10-37 U/L Alanine Aminotransferase (ALT/SGPT) 53 12-78 U/L Alkaline Phosphatase 111 50-136 U/L Total Creatine Kinase 56 21-232 U/L Total Protein 7.5 6.0-8.3 g/dL Albumin 3.2 L 3.5-5.0 g/dL DIAGNOSTICS / RADIOLOGY RESULTS: PATIENT: CHRISTINA HARRISON MR#: [id number] : 1990 SEX: F AGE: 34 LOCATION: 4A ORDER 09 STATUS: ADM IN REPORT#: [id number] SERVICE 51 REASON: sob and cp ORDERING PHYSICIAN: JORI GIANG GARAGEMAN PROCEDURE: CHEST WO - CT CHEST W/O CONTRAST Shortness of breath CT CHEST W/O CONTRAST HISTORY: No additional history given. COMPARISON: None TECHNIQUE: Multiple sequential axial images of the chest were obtained from the thoracic inlet through upper abdomen. Patient was not given contrast through intravenous route. FINDINGS: Right lower lobe consolidated pneumonia is seen predominantly involving the superior segment. No pleural effusion or pericardial effusion is seen. There is no evidence of pneumothorax. There are normal size mediastinal and hilar lymph nodes. The heart is not enlarged. Degenerative changes of the thoracolumbar spine are present. There is no evidence of adrenal nodule. Post cholecystectomy changes are seen. IMPRESSION: 1. Right lower lobe consolidated pneumonia is seen predominantly involving the superior segment. CT was performed with one or more following dose reduction techniques: automated exposure control, adjustment of the mA and kv according to patient's size, or use of a iterative reconstruction technique. DICTATED BY: WENDY HARRIS MD DATE: 11/09/2426 ELECTRONICALLY SIGNED BY: WENDY HARRIS MD DATE: 11/09/2433 PLAN NEURO: Minimize central acting medications as possible. Maintain fall precautions, adequate lighting during the day PULMONARY: Supplemental 02 as needed. Maintain aspiration precautions at all times CARDIOVASCULAR: Follow hemodynamics. Vital signs per facility protocol GI & NUTRITION: Continue with nutritional support. Continue stool softeners and laxatives as needed. KIDNEYS & ELECTROLYTES: Strict monitoring of intake, output and overall fluid balance. Avoid nephrotoxic medications to the extent possible. Medications to be dosed according to renal function. Monitor electrolytes and replace as needed ENDOCRINE: Maintain blood glucose between 100-180 at all times. Hypoglycemia protocol in place INFECTIOUS DISEASE: Trend temperature, WBC and procalcitonin level Follow cultures, deescalate antibiotics as soon as possible. Panculture if new onset fever ONCOLOGY/HEMATOLOGY/COAGULATION: Monitor for s/s of bleeding Monitor hemoglobin, coagulation studies as needed SKIN: Pressure ulcer prevention per facility protocol Specialty mattress ORTHO/REHAB: Continue PT/OT Prophylaxis: Continue GI and DVT prophylaxis Code Status: Full Resuscitation Disposition: As per attending Other: Total patient care time exceeds 35 minutes excluding all procedures. ATTESTATION BY PHYSICIAN The patient has been seen and evaluated, the case has been discussed with the [employer]ER, I agree with the clinical findings and plan of care. Faizan Álvarez MD, ECTOR N [employer]ER Nov 09, 2024 12:23
--- NOTE | 2024-11-09 12:39 | PN ---
[facility] PROGRESS NOTE Date of Service: Nov 09, 2024 Time of Service: 12:27 SUBJECTIVE: This is a 34-year-old female with past medical history of chronic back and neck pain, irritable bowel syndrome and asthma who presents to the ED for multiple complaints such as body aches, on and off fever, chest pain, cough, nausea ,shortness of breath and diarrhea started for almost 9 days and patient did not seek medical help until today.Patient reports she has not been eating and drinking well because she will throw up every time she eat or drink something so she stopped she said.Patient states she has occasional greenish phlegm . Patient states sampson is updated with her flu and Covid vaccine.Patient denies recent travel and no sick contacts. Chest x-ray result revealed right perihilar pneumonia. While in the ER patient received Rocephin 1 g IV, azithromycin IV, albuterol DuoNeb, Solu-Medrol 125 mg IV and Tylenol [address] chest- Right lower lobe consolidated pneumonia is seen predominantly involving the superior segment. EKG sinus rhythm 11/09/2024-patient was seen and examined at the bedside, she is very anxious crying, she says she wants to go home. Explained our her about pneumonia and that she needs to get treated. She does not complain any shortness of breath or chest pain says she feels better than yesterday. Vitals tachycardia and [id number] and 22 respectively, pulse oxygen 96 on room air, blood pressure normal. Her serial troponin labs were negative. Pulmonology on board, patient continues on ceftriaxone and azithromycin. Gave her a dose of 0.5 mg Xanax for anxiety. Patient says she has a long history of IBD and she has 6-8 episodes of diarrhea and flare-up sometimes. She follows up with GI outpatient. We will do stool culture for possible infection. Respiratory sputum -1+ GRAM POSITIVE RODS 1+ GRAM POSITIVE COCCI RESPIRATORY CULTURE PENDING REVIEW OF SYSTEMS CONSTITUTIONAL: Subsided fevers and chills, anxious Denies or night sweats. No unintentional weight loss reported. NEUROLOGICAL: Denies headache, amaurosis fugax, motor weakness, sensory defic it, vertigo/spinning sensation, gait abnormalities, or tremors. ENT: No hearing loss, otalgia, otorrhea, rhinitis, rhinorrhea, hoarseness, or sore throat. CARDIOVASCULAR: Complain of chest pain subsided Denies dyspnea on exertion, orthopnea, paroxysmal nocturnal dyspnea, palpitations, life-threatening arrhythmias, claudication. PULMONARY: Complain of productive cough and shortness of breaths subsided Denies hemoptysis, pleuritic chest pain. SLEEP: Denies morning headaches, daytime somnolence or napping. Denies difficulty falling asleep, staying asleep, waking from sleep. Denies knowledge of snoring. GASTROINTESTINAL: Complain of nausea subsided Denies any type of dysphagia to either liquids or solids. Denies vomiting, pyrosis, early satiety, abdominal pain, diarrhea, constipation, or changes in stool consistency or caliber. Denies coffee-ground emesis, hematemesis, hematochezia, or melanotic stools. GENITOURINARY: Denies frequency, urgency, nocturia, hematuria or incontinence (Storage/Irritative symptoms.) Low urinary stream, straining to void, urinary intermittency or hesitancy, splitting of the voiding stream, terminal dribbling. ENDOCRINOLOGIC: Denies polyuria, polydipsia, polyphagia or heat/cold intolerances. HEMATOLOGIC: Denies thrombophilia/previous clots, or coagulopathy/bleeding disorders. ONCOLOGIC: Denies personal history of malignancy. DERMATOLOGIC: Denies rashes or pruritus. PSYCHIATRIC: Denies any suicidal or homicidal ideation. Denies hallucinations. PHYSICAL EXAM GENERAL APPEARANCE: The patient is awake, alert, and oriented, in no acute cardiopulmonary distress. NEUROLOGICAL: Cranial nerves II-XII grossly intact. Motor is 5/5 in bilateral upper and lower extremities proximal to distal. No sensory deficits. HEENT: Face is symmetric. Pupils are equal and reactive. Extraocular movements are intact. NECK: Supple. No JVD. No thyromegaly. No submental, submandibular, pre- /postauricular, occipital or supraclavicular lymphadenopathy. CHEST: Normal chest expansion. No Telemetry. LUNGS: Expiratory wheezes on right lung field with diminished left lung per auscultation CARDIOVASCULAR: Regular. S1 and S2 normal. No appreciable rubs, murmurs or gallops. ABDOMEN: Soft, nontender, and nondistended. There is no rebound, voluntary guarding, or rigidity. : Deferred. No [place]. EXTREMITIES: Non-edematous and not cyanotic. No clubbing. Good capillary refill. SKIN: No skin breakdown. Vital Signs (last 8hr) Date Time Temp Pulse Resp B/P (MAP) Pulse Ox O2 Delivery O2 Flow Rate FiO2 11/09/24 10:47 97.9 113 22 123/74 96 Room Air 21 11/09/24 10:26 21 11/09/24 10:16 81 18 11/09/24 07:00 98.1 82 18 100/66 96 Room Air 21 11/09/24 06:17 85 18 11/09/24 06:14 85 18 N/A Room Air 21 LABS: Laboratory: Test 11/09/24 10:48 11/09/24 09:00 11/09/24 03:21 11/08/24 17:18 Range/Units Whole Blood Glucose 130 H 70-110 MG/DL Troponin I High Sensitivity < 4 L 4-50 ng/L White Blood Count 6.9 4.8-10.8 K/uL Red Blood Count 4.11 4.00-5.50 MIL/uL Hemoglobin 12.3 12.0-16.0 g/dL Hematocrit 36.9 36-48 % Mean Corpuscular Volume 89.8 79-99 fL Mean Corpuscular Hemoglobin 29.9 27.0-33.0 pg Mean Corpuscular Hemoglobin Concent 33.3 32.0-36.0 g/dL Red Cell Distribution Width 12.1 11.0-15.5 % Platelet Count 199 130-400 K/uL Mean Platelet Volume 10.3 7.5-10.5 fL Immature Granulocyte % (Auto) 0.4 0-1 % Neutrophils (%) (Auto) 90.4 H 40.0-77.0 % Lymphocytes (%) (Auto) 7.9 L 21.0-51.0 % Monocytes (%) (Auto) 1.2 L 3.0-13.0 % Eosinophils (%) (Auto) 0.0 0.0-8.0 % Basophils (%) (Auto) 0.1 0.0-5.0 % Neutrophils # (Auto) 6.2 1.8-7.7 K/uL Lymphocytes # (Auto) 0.5 L 1.0-4.8 K/uL Monocytes # (Auto) 0.1 0.1-1.0 K/uL Eosinophils # (Auto) 0.00 0.00-0.70 K/uL Basophils # (Auto) 0.01 0.00-0.20 K/uL Absolute Immature Granulocyte (auto 0.03 0-1 K/uL Nucleated Red Blood Cells 0.0 0.0-0.19 % White Cell Morphology Comment CONSISTENT W/DIFF Erythrocyte Sedimentation Rate 55 H 0-20 MM/HR Sodium Level 139 136-145 mmol/L Potassium Level 3.6 3.5-5.1 mmol/L Chloride Level 105 101-111 mmol/L Carbon Dioxide Level 22 21-32 mmol/L Blood Urea Nitrogen 9 7-18 mg/dL Creatinine 0.8 0.5-1.0 mg/dL Glomerular Filtration Rate Calc 99 >90 mL/min Random Glucose 148 #H 70-105 mg/dL Lactic Acid Level 2.0 0.8-2.5 mmol/L Total Calcium 8.6 8.5-10.1 mg/dL Magnesium Level 2.00 1.80-2.40 mg/dL Total Bilirubin 0.3 0.2-1.0 mg/dL Aspartate Amino Transf (AST/SGOT) 10 10-37 U/L Alanine Aminotransferase (ALT/SGPT) 53 12-78 U/L Alkaline Phosphatase 111 50-136 U/L Total Creatine Kinase 56 21-232 U/L Total Protein 7.5 6.0-8.3 g/dL Albumin 3.2 L 3.5-5.0 g/dL Influenza Type A Antigen Negative For Type A NEGATIVE Influenza Type B Antigen Negative For Type B NEGATIVE SARS-CoV-2 Antigen (Rapid) PRESUMPTIVE NEGATIVE NEGATIVE Current Medications Medications (Trade) Dose Ordered Sig/Jesús Route PRN Reason Start Time Stop Time Status Last Admin Dose Admin Acetaminophen/ Hydrocodone Bitart (NORco 5/325MG) 1 tab Q6H PRN PO MODERATE PAIN (4-6) 11/08/24 22:30 11/13/24 22:29 11/09/24 02:19 1 TAB Albuterol (DUOneb) 1 udvial [id number] IH 11/08/24 22:00 12/08/24 21:59 11/09/24 10:15 1 UDVIAL Azithromycin 250 ml @ 250 mls/hr Q24H IV 11/09/24 21:00 11/19/24 20:59 Azithromycin 250 ml @ 250 mls/hr STAT STAT IVPB 11/08/24 18:53 11/08/24 19:52 DC 11/08/24 19:21 250 MLS/HR Benzonatate (Tessalon 100mg Caps) 200 mg Q8H PO 11/09/24 12:30 12/09/24 12:29 UNV Ceftriaxone Sodium 1 gm/ Sodium Chloride 50 ml @ 100 mls/hr Q24H IV 11/08/24 21:00 11/08/24 20:55 DC Ceftriaxone Sodium (ROCEphine 1G INJ) 1 gm Q24H IVPB 11/09/24 21:00 11/19/24 20:59 Famotidine (Pepcid 20mg Vial) 20 mg BID IV 11/08/24 21:00 12/08/24 20:59 11/09/24 09:23 20 MG Ketorolac Tromethamine (toRADol) 15 mg Q6H PRN IV MODERATE PAIN (4-6) 11/08/24 21:00 11/08/24 20:56 DC Magnesium Sulfate 50 ml @ 0 mls/hr PROTOCOL PRN IV OTHER [SEE ORDER COMMENTS] 11/08/24 21:00 12/08/24 20:59 Methylprednisolone Sodium Succinate (Solu-medROL 40MG) 40 mg BID IVP 11/08/24 21:00 12/08/24 20:59 11/09/24 09:23 40 MG Montelukast Sodium (SinguLAIR) 10 mg DAILY PO 11/09/24 12:30 12/09/24 12:29 UNV Nitroglycerin (Nitrostat) 0.4 mg AD PRN SL CHEST PAIN 11/08/24 21:00 12/08/24 20:59 Potassium Chloride 100 ml @ 100 mls/hr AD PRN IV POTASSIUM PROTOCOL 11/08/24 21:00 12/08/24 20:59 Potassium Chloride (K-Dur/Klor-Con 20meq) 20 meq AD PRN PO POTASSIUM PROTOCOL 11/08/24 21:00 12/08/24 20:59 11/09/24 05:51 20 MEQ Potassium Chloride (KCl 10% Elixir 20meq/15ml) 20 meq AD PRN PO POTASSIUM PROTOCOL 11/08/24 21:00 12/08/24 20:59 Sodium Chloride 1,000 ml @ 75 mls/hr [id number] IV 11/08/24 21:00 12/08/24 20:59 11/08/24 21:32 75 MLS/HR DIAGNOSTICS / RADIOLOGY: [ ] ASSESSMENT: Chest pain unspecified POA Right perihilar pneumonia POA Acute Asthma POA PLAN: on clear liquid diet and advanced as tolerated on NS @ 75 ml / hr x2 bags and re evaluate Continue on Rocephin 1 g IV and azithromycin IV for broad-spectrum coverage Continue on Solu-Medrol 40 mg IV b.i.d. on Famotidine 20 mg IV bid for GI prophylaxis We will replace electrolytes as needed per protocol May use oxygen supplementation to keep saturation above 92% continue albuterol neb treatment q.4 hours for shortness of breath and cough We will add prn medication for fever,pain,cough ,nausea and vomiting Pulmonology consult noted CT chest without contrast -Right lower lobe consolidated pneumonia is seen predominantly involving the superior segment. We will request labs in am Further orders to follow depending on above results ATTESTATION BY PHYSICIAN I have seen and examined the patient. I reviewed the documentation, medical decision making, and treatment plan as noted by the mid-level provider above. I agree with the findings and plan of care. ivana Reardon MD, AISHWARYA MD Nov 09, 2024 12:39
[2024-11-09] MEDS: ALPRAZolam 0.5 MG TABLET PO ONE (13:01)
[2024-11-09] MEDS: BENZONATATE 100 MG CAPSULE PO SCH (13:01)
[2024-11-09] MEDS: monteLUKAST sodIUM 10 MG TAB PO SCH (13:06)
[2024-11-09 18:44] LABS: AMPHET/METH SCREEN,URINE NEGATIVE (NEGATIVE); BARBITURATE SCREEN, URINE NEGATIVE (NEGATIVE); BENZODIAZEPINES SCREEN,URINE POSITIVE (NEGATIVE); CANNABINOID SCREEN,URINE POSITIVE (NEGATIVE); COCAINE SCREEN,URINE NEGATIVE (NEGATIVE); OPIATE SCREEN,URINE NEGATIVE (NEGATIVE); PHENCYCLIDINE SCREEN,URINE NEGATIVE (NEGATIVE)
[2024-11-09] MEDS: cefTRIAXone 1G VIAL IVPB SCH (20:48)
[2024-11-09] MEDS: AZITHROMYCIN 500MG+NS 250ML 250 ML IV SCH (20:48)
[2024-11-09] MEDS: ondanSETRON 4MG TABLET PO PRN (21:16)
[2024-11-10] VITALS (11 sets, daily range): BP systolic 98–112; BP diastolic 53–63; PULSE 65–96; RESP 18–23; TEMP 97.8–98.4; O2SAT 94–98
--- NOTE | 2024-11-10 03:19 | NUR ---
NURSE NOTE PATIENT VOICED RELIEVE OF PAIN AND NAUSEA AFTER MEDICATED PRN , NO UNSTEADY GAIT NOTED THIS SHIFT. DENIES DIZZINESS, POC DISCUSSED. PATIENT VOICED UNDERSTANDING, ALL QUESTIONS ANSWERED. WILL CONTINUE TO MONITOR.
[2024-11-10 03:50] LABS: BASOPHILS # (AUTO) 0.01 K/uL (0.00-0.20); BASOPHILS % (AUTO) 0.1 % (0.0-5.0); HEMATOCRIT 36.3 % (36-48); IMMATURE GRANULOCYTE ABSOLUTE 0.11 K/uL (0-1); LYMPHOCYTES % (AUTO) 10.7 % (21.0-51.0); MEAN CORPUSCULAR HEMOGLOBIN 29.5 pg (27.0-33.0); MEAN CORPUSCULAR HGB CONC 33.1 g/dL (32.0-36.0); MEAN CORPUSCULAR VOLUME 89.2 fL (79-99); MONOCYTES # (AUTO) 0.4 K/uL (0.1-1.0); MONOCYTES % (AUTO) 4.1 % (3.0-13.0); NEUTROPHILS # (AUTO) 7.7 K/uL (1.8-7.7); NEUTROPHILS % (AUTO) 83.9 % (40.0-77.0); PLATELET COUNT (AUTO) 223 K/uL (130-400); RED BLOOD CELL COUNT(AUTO) 4.07 MIL/uL (4.00-5.50); RED CELL DISTRIBUTION WIDTH 12.2 % (11.0-15.5); WHITE BLOOD COUNT (AUTO) 9.2 K/uL (4.8-10.8)
[2024-11-10 03:55] LABS: ALBUMIN 3.3 g/dL (3.5-5.0); BILIRUBIN,TOTAL 0.2 mg/dL (0.2-1.0); CREATININE 0.7 mg/dL (0.5-1.0); POTASSIUM 4.2 mmol/L (3.5-5.1); TOTAL PROTEIN, SERUM 7.5 g/dL (6.0-8.3)
[2024-11-10] MEDS: DICYCLOMINE HCL 20 MG TAB PO SCH (08:48)
--- NOTE | 2024-11-10 09:20 | PN ---
[facility] PROGRESS NOTE Date Patient Seen: Nov 10, 2024 Time of Visit: 09:16 Supervising Physician: [Dr Corley Primary Care Physician: Dr Rendon ([facility]) Outpatient Specialists: [ ] Inpatient Consults: [BIS PROBLEM LIST: Acute on chronic asthma exacerbation Right perihilar pneumonia Chest pain unspecified POA IBS Chronic neck/back pain PLAN SUMMARY: Supplemental oxygen as needed Duo nebs every 4 hours Pulmicort b.i.d. Rocephin Azithromycin DC Solu-Medrol Prednisone 40 mg po daily x 7 days Montelukast 10 mg daily Tessalon Perles t.i.d. oral OUtput f/u in pulmonary clinic 1 week post DC INTERVAL HISTORY: Christina Bolanos is a 34-year-old female with past medical history of chronic back and neck pain, irritable bowel syndrome and asthma who presents to the ED for multiple complaints such as body aches, on and off fever, chest pain, cough, nausea ,shortness of breath and diarrhea started for almost 9 days and patient did not seek medical help until today. Patient reports she was caring for her ill son and has a ignored her own health in the past years. Patient does not compliant with her inhalers and outpatient provider visits once again due to her caring for her ill son. Patient reports very poor appetite as she was unable to keep anything down and has emesis with meals. Patient states she has occasional greenish phlegm . Patient states she is updated with her flu and Covid vaccine. Patient denies recent travel and no sick contacts. Patient denies smoking, alcohol use or illicit drug use. Patient had a chest x-ray which showed right perihilar pneumonia and for this reason we are consulted. Patient is seen and evaluated at bedside. Patient is lying in bed resting quietly does not appear to be in any acute distress at this time. Patient remains on room air and denies chest discomfort, chest pain or dyspnea with exertion. Patient does complain of a cough. Vital signs are stable. Labs are within normal limits per minute troponins have been negative x4. requested a CT scan of the chest which shows right lower lobe consolidated pneumonia. Recommend continue Rocephin, azithromycin, duo nebs, Pulmicort, and high-dose steroids times 24 hours then transitioned to prednisone in a.m.. We will continue to follow with you. 4/12 - patient is seen sitting up in bed with no signs of acute distress at this time. Patient remains on room air and denies dyspnea with exertion. Patient i s bilateral wheezing has resolved on exam. No acute changes reported overnight. We will discontinue Solu-Medrol and start patient on prednisone 40 mg daily to continue7 days on discharge. Patient to continue azithromycin which can be switched to oral. Patient continues on Rocephin and can be discharged home with oral cephalosporins. Vital signs are stable. Labs are within normal limits. Patient has been advised to follow up in Pulmonary Clinic1 week post discharge. From a pulmonary standpoint, patient may be discharged with oral antibiotics and prednisone. REVIEW OF SYSTEMS: 12 point ROS reviewed with patient. Pertinent positives mentioned above. Otherwise negative. PHYSICAL EXAM: GENERAL: alert, weak, awake oriented x 3 HEENT: EOMI, Sclera non icteric, moist mucosa NECK: Supple, no JVD, trachea midline LUNGS: Clear breath sounds bilaterally. No wheezes HEART: Regular rate and rhythm. Normal S1 and S2, without murmurs ABD: Abdomen soft, nontender. Bowel sounds present EXT: No clubbing cyanosis or edema NEURO: Alert and oriented to person, follows commands Vital Signs (last 8hr) Date Time Temp Pulse Resp B/P (MAP) Pulse Ox O2 Delivery O2 Flow Rate FiO2 11/10/24 07:05 98.1 89 20 98/53 94 Room Air 21 11/10/24 06:23 67 18 N/A Room Air 21 11/10/24 06:20 67 18 11/10/24 04:00 98.2 65 22 102/63 97 Room Air 11/10/24 02:16 96 18 LABS: Hematology Labs: Test 11/10/24 02:54 11/09/24 03:21 Range/Units White Blood Count 9.2 # 4.8-10.8 K/uL Red Blood Count 4.07 4.00-5.50 MIL/uL Hemoglobin 12.0 12.0-16.0 g/dL Hematocrit 36.3 36-48 % Mean Corpuscular Volume 89.2 79-99 fL Mean Corpuscular Hemoglobin 29.5 27.0-33.0 pg Mean Corpuscular Hemoglobin Concent 33.1 32.0-36.0 g/dL Red Cell Distribution Width 12.2 11.0-15.5 % Platelet Count 223 130-400 K/uL Mean Platelet Volume 10.5 7.5-10.5 fL Immature Granulocyte % (Auto) 1.2 H 0-1 % Neutrophils (%) (Auto) 83.9 H 40.0-77.0 % Lymphocytes (%) (Auto) 10.7 L 21.0-51.0 % Monocytes (%) (Auto) 4.1 3.0-13.0 % Eosinophils (%) (Auto) 0.0 0.0-8.0 % Basophils (%) (Auto) 0.1 0.0-5.0 % Neutrophils # (Auto) 7.7 1.8-7.7 K/uL Lymphocytes # (Auto) 1.0 1.0-4.8 K/uL Monocytes # (Auto) 0.4 0.1-1.0 K/uL Eosinophils # (Auto) 0.00 0.00-0.70 K/uL Basophils # (Auto) 0.01 0.00-0.20 K/uL Absolute Immature Granulocyte (auto 0.11 0-1 K/uL Nucleated Red Blood Cells 0.0 0.0-0.19 % White Cell Morphology Comment CONSISTENT W/DIFF Erythrocyte Sedimentation Rate 55 H 0-20 MM/HR Chemistry Labs: Test 11/10/24 02:54 11/09/24 10:48 11/09/24 09:00 11/09/24 03:21 Range/Units Sodium Level 138 136-145 mmol/L Potassium Level 4.2 3.5-5.1 mmol/L Chloride Level 105 101-111 mmol/L Carbon Dioxide Level 23 21-32 mmol/L Blood Urea Nitrogen 10 7-18 mg/dL Creatinine 0.7 0.5-1.0 mg/dL Glomerular Filtration Rate Calc 116 >90 mL/min Random Glucose 129 H 70-105 mg/dL Total Calcium 9.1 8.5-10.1 mg/dL Total Bilirubin 0.2 # 0.2-1.0 mg/dL Aspartate Amino Transf (AST/SGOT) 10 10-37 U/L Alanine Aminotransferase (ALT/SGPT) 43 12-78 U/L Alkaline Phosphatase 104 50-136 U/L Total Protein 7.5 6.0-8.3 g/dL Albumin 3.3 L 3.5-5.0 g/dL Whole Blood Glucose 130 H 70-110 MG/DL Troponin I High Sensitivity < 4 L 4-50 ng/L Lactic Acid Level 2.0 0.8-2.5 mmol/L Magnesium Level 2.00 1.80-2.40 mg/dL Total Creatine Kinase 56 21-232 U/L DIAGNOSTICS / RADIOLOGY RESULTS: [ ] PLAN NEURO: Minimize central acting medications as possible. Maintain fall precautions, adequate lighting during the day PULMONARY: Supplemental 02 as needed. Maintain aspiration precautions at all times CARDIOVASCULAR: Follow hemodynamics. Vital signs per facility protocol GI & NUTRITION: Continue with nutritional support. Continue stool softeners and laxatives as needed. KIDNEYS & ELECTROLYTES: Strict monitoring of intake, output and overall fluid balance. Avoid nephrotoxic medications to the extent possible. Medications to be dosed according to renal function. Monitor electrolytes and replace as needed ENDOCRINE: Maintain blood glucose between 100-180 at all times. Hypoglycemia protocol in place INFECTIOUS DISEASE: Trend temperature, WBC and procalcitonin level Follow cultures, deescalate antibiotics as soon as possible. Panculture if new onset fever ONCOLOGY/HEMATOLOGY/COAGULATION: Monitor for s/s of bleeding Monitor hemoglobin, coagulation studies as needed SKIN: Pressure ulcer prevention per facility protocol Specialty mattress ORTHO/REHAB: Continue PT/OT Prophylaxis: Continue GI and DVT prophylaxis Code Status: Full Resuscitation Disposition: As per attending Other: Total patient care time exceeds 35 minutes excluding all procedures. ATTESTATION BY PHYSICIAN I reviewed the documentation, medical decision making, and treatment plan as noted by the mid-level provider above. I agree with the findings and plan of care. Antione Corley MD, ECTOR N NP Nov 10, 2024 09:20
[2024-11-10] MEDS ORDERED: IPRA3AMP24 NEB (12:07)
[2024-11-10] MEDS ORDERED: FAMO-136 PO (12:07)
[2024-11-10] MEDS ORDERED: PRED20TA3 PO (12:07)
[2024-11-10] MEDS ORDERED: MONT-46 PO (12:07)
--- NOTE | 2024-11-10 15:00 | NUR ---
DISCHARGE NOTE IV and ID band removed. Discharge instructions, medications, and follow up appointments reviewed. Paper copy provided to patient. Personal items packed and taken by patient. Significant other at bedside. Wheeled down by staff to private vehicle.
[2024-11-10] MEDS ORDERED: AZIT250T9 PO (18:04)
--- NOTE | 2024-11-10 18:07 | DS ---
Discharge Summary Hospital Course Summary: 34-year-old female with past medical history of chronic back and neck pain, irritable bowel syndrome and asthma who presents to the ED for multiple complaints such as body aches, on and off fever, chest pain, cough, nausea ,shortness of breath and diarrhea started for almost 9 days and patient did not seek medical help until today.Patient reports she has not been eating and drinking well because she will throw up every time she eat or drink something so she stopped she said.Patient states she has occasional greenish phlegm . Patient states sampson is updated with her flu and Covid vaccine.Patient denies recent travel and no sick contacts. Chest x-ray result revealed right perihilar pneumonia. While in the ER patient received Rocephin 1 g IV, azithromycin IV, albuterol DuoNeb, Solu-Medrol 125 mg IV and Tylenol [address] chest- Right lower lobe consolidated pneumonia is seen predominantly involving the superior segment. EKG sinus rhythm 11/09/2024-patient was seen and examined at the bedside, she is very anxious crying, she says she wants to go home. Explained our her about pneumonia and that she needs to get treated. She does not complain any shortness of breath or chest pain says she feels better than yesterday. Vitals tachycardia and [id number] and 22 respectively, pulse oxygen 96 on room air, blood pressure normal. Her serial troponin labs were negative. Pulmonology on board, patient continues on ceftriaxone and azithromycin. Gave her a dose of 0.5 mg Xanax for anxiety. Patient says she has a long history of IBD and she has 6-8 episodes of diarrhea and flare-up sometimes. She follows up with GI outpatient. We will do stool culture for possible infection. Respiratory sputum -1+ GRAM POSITIVE RODS 1+ GRAM POSITIVE COCCI RESPIRATORY CULTURE PENDING 11/10/2024. Patient seen and examined along with RN. She feels much better sputum culture likely contamination. Patient will be discharged home on p.o. steroids Singulair and p.o. antibiotics cleared from pulmonary point of view for discharge. She we will follow up with pulmonology GI as an outpatient. Sandwich Counter Attendant(s): Pulmonary consult by [facility]IS group: Continue steroids duo nebs and antibiotics. Procedure(s): Vital Signs Date Time Temp Pulse Resp B/P (MAP) Pulse Ox O2 Delivery O2 Flow Rate FiO2 11/10/24 11:41 98.4 83 20 102/53 100 Room Air 21 11/10/24 08:00 0 Laboratory Tests Test 11/08/24 19:05 11/08/24 21:20 11/09/24 03:21 11/09/24 09:00 White Blood Count 8.5 K/uL (4.8-10.8) 6.9 K/uL (4.8-10.8) Red Blood Count 4.79 MIL/uL (4.00-5.50) 4.11 MIL/uL (4.00-5.50) Hemoglobin 14.4 g/dL (12.0-16.0) 12.3 g/dL (12.0-16.0) Hematocrit 42.5 % (36-48) 36.9 % (36-48) Mean Corpuscular Volume 88.7 fL (79-99) 89.8 fL (79-99) Mean Corpuscular Hemoglobin 30.1 pg (27.0-33.0) 29.9 pg (27.0-33.0) Mean Corpuscular Hemoglobin Concent 33.9 g/dL (32.0-36.0) 33.3 g/dL (32.0-36.0) Red Cell Distribution Width 12.3 % (11.0-15.5) 12.1 % (11.0-15.5) Platelet Count 221 K/uL (130-400) 199 K/uL (130-400) Mean Platelet Volume 10.2 fL (7.5-10.5) 10.3 fL (7.5-10.5) Immature Granulocyte % (Auto) 0.4 % (0-1) 0.4 % (0-1) Neutrophils (%) (Auto) 78.3 % (40.0-77.0) H 90.4 % (40.0-77.0) H Lymphocytes (%) (Auto) 13.5 % (21.0-51.0) L 7.9 % (21.0-51.0) L Monocytes (%) (Auto) 6.9 % (3.0-13.0) 1.2 % (3.0-13.0) L Eosinophils (%) (Auto) 0.7 % (0.0-8.0) 0.0 % (0.0-8.0) Basophils (%) (Auto) 0.2 % (0.0-5.0) 0.1 % (0.0-5.0) Neutrophils # (Auto) 6.7 K/uL (1.8-7.7) 6.2 K/uL (1.8-7.7) Lymphocytes # (Auto) 1.2 K/uL (1.0-4.8) 0.5 K/uL (1.0-4.8) L Monocytes # (Auto) 0.6 K/uL (0.1-1.0) 0.1 K/uL (0.1-1.0) Eosinophils # (Auto) 0.06 K/uL (0.00-0.70) 0.00 K/uL (0.00-0.70) Basophils # (Auto) 0.02 K/uL (0.00-0.20) 0.01 K/uL (0.00-0.20) Absolute Immature Granulocyte (auto 0.03 K/uL (0-1) 0.03 K/uL (0-1) Nucleated Red Blood Cells 0.0 % (0.0-0.19) 0.0 % (0.0-0.19) Sodium Level 137 mmol/L (136-145) 139 mmol/L (136-145) Potassium Level 3.9 mmol/L (3.5-5.1) 3.6 mmol/L (3.5-5.1) Chloride Level 101 mmol/L (101-111) 105 mmol/L (101-111) Carbon Dioxide Level 23 mmol/L (21-32) 22 mmol/L (21-32) Blood Urea Nitrogen 10 mg/dL (7-18) 9 mg/dL (7-18) Creatinine 0.9 mg/dL (0.5-1.0) 0.8 mg/dL (0.5-1.0) Glomerular Filtration Rate Calc 86 mL/min (>90) 99 mL/min (>90) Random Glucose 93 mg/dL (70-105) 148 mg/dL (70-105) #H Total Calcium 9.5 mg/dL (8.5-10.1) 8.6 mg/dL (8.5-10.1) Total Creatine Kinase 69 U/L (21-232) 56 U/L (21-232) Troponin I High Sensitivity < 4 ng/L (4-50) L < 4 ng/L (4-50) L < 4.0 ng/L (4-50) L < 4 ng/L (4-50) L White Cell Morphology Comment CONSISTENT W/DIFF Erythrocyte Sedimentation Rate 55 MM/HR (0-20) H Lactic Acid Level 2.0 mmol/L (0.8-2.5) Magnesium Level 2.00 mg/dL (1.80-2.40) Total Bilirubin 0.3 mg/dL (0.2-1.0) Aspartate Amino Transferase (AST) 10 U/L (10-37) Alanine Aminotransferase (ALT) 53 U/L (12-78) Alkaline Phosphatase 111 U/L (50-136) Total Protein 7.5 g/dL (6.0-8.3) Albumin 3.2 g/dL (3.5-5.0) L Test 11/09/24 10:48 11/09/24 18:20 11/10/24 02:54 11/10/24 10:50 Whole Blood Glucose 130 MG/DL (70-110) H 111 MG/DL (70-110) H Urine Opiates Screen NEGATIVE (NEGATIVE) Urine Barbiturates Screen NEGATIVE (NEGATIVE) Urine Phencyclidine Screen NEGATIVE (NEGATIVE) Urine Amphetamines Screen NEGATIVE (NEGATIVE) Urine Benzodiazepines Screen POSITIVE (NEGATIVE) H Urine Cocaine Screen NEGATIVE (NEGATIVE) Urine Marijuana (THC) Screen POSITIVE (NEGATIVE) H White Blood Count 9.2 K/uL (4.8-10.8) # Red Blood Count 4.07 MIL/uL (4.00-5.50) Hemoglobin 12.0 g/dL (12.0-16.0) Hematocrit 36.3 % (36-48) Mean Corpuscular Volume 89.2 fL (79-99) Mean Corpuscular Hemoglobin 29.5 pg (27.0-33.0) Mean Corpuscular Hemoglobin Concent 33.1 g/dL (32.0-36.0) Red Cell Distribution Width 12.2 % (11.0-15.5) Platelet Count 223 K/uL (130-400) Mean Platelet Volume 10.5 fL (7.5-10.5) Immature Granulocyte % (Auto) 1.2 % (0-1) H Neutrophils (%) (Auto) 83.9 % (40.0-77.0) H Lymphocytes (%) (Auto) 10.7 % (21.0-51.0) L Monocytes (%) (Auto) 4.1 % (3.0-13.0) Eosinophils (%) (Auto) 0.0 % (0.0-8.0) Basophils (%) (Auto) 0.1 % (0.0-5.0) Neutrophils # (Auto) 7.7 K/uL (1.8-7.7) Lymphocytes # (Auto) 1.0 K/uL (1.0-4.8) Monocytes # (Auto) 0.4 K/uL (0.1-1.0) Eosinophils # (Auto) 0.00 K/uL (0.00-0.70) Basophils # (Auto) 0.01 K/uL (0.00-0.20) Absolute Immature Granulocyte (auto 0.11 K/uL (0-1) Nucleated Red Blood Cells 0.0 % (0.0-0.19) Sodium Level 138 mmol/L (136-145) Potassium Level 4.2 mmol/L (3.5-5.1) Chloride Level 105 mmol/L (101-111) Carbon Dioxide Level 23 mmol/L (21-32) Blood Urea Nitrogen 10 mg/dL (7-18) Creatinine 0.7 mg/dL (0.5-1.0) Glomerular Filtration Rate Calc 116 mL/min (>90) Random Glucose 129 mg/dL (70-105) H Total Calcium 9.1 mg/dL (8.5-10.1) Total Bilirubin 0.2 mg/dL (0.2-1.0) # Aspartate Amino Transferase (AST) 10 U/L (10-37) Alanine Aminotransferase (ALT) 43 U/L (12-78) Alkaline Phosphatase 104 U/L (50-136) Total Protein 7.5 g/dL (6.0-8.3) Albumin 3.3 g/dL (3.5-5.0) L Assessment/Plan: ASSESSMENT: Chest pain unspecified POA Right perihilar pneumonia POA Acute Asthma POA Home Medications: Active Scripts Azithromycin (Azithromycin) 250 Mg Tablet, 250 MG PO DAILY, #5 TAB Prov:SHAKEEL KILLIAN MD 11/10/24 Ipratropium/Albuterol Sulfate (Iprat-Albut 0.5-3(2.5) mg/3 ml) 0.5 Mg-3 Mg (2.5 Mg Base)/3 Ml Ampul.neb, 1 VIAL NEB BID for 30 Days, #180 ML 0 Refills Prov:SHAKEEL KILLIAN MD 11/10/24 Famotidine (Pepcid) 20 Mg Tablet, 1 TAB PO BID for 30 Days, #60 TAB 0 Refills Prov:SHAKEEL KILLIAN MD 11/10/24 Prednisone (Prednisone) 20 Mg Tablet, 40 MG PO DAILY for 5 Days, #10 TAB Prov:SHAKEEL KILLIAN MD 11/10/24 Montelukast Sodium (Singulair 10Mg) 10 Mg Tab, 1 TAB PO DAILY for 30 Days, #30 TAB 0 Refills Prov:SHAKEEL KILLIAN MD 11/10/24 Reported Medications Promethazine HCl (Promethazine HCl) 25 Mg Tablet, 25 MG PO AM, TAB 11/09/24 Dicyclomine HCl (Dicyclomine HCl) 20 Mg Tablet, 20 MG PO AM, TAB 11/09/24 Cyclobenzaprine HCl (Cyclobenzaprine HCl) 10 Mg Tablet, 1 TAB PO HS for muscle spasms for 30 Days, #30 TAB 0 Refills 11/09/24 Discontinued Reported Medications Linaclotide (Linzess) 290 Mcg Capsule, 1 CAP PO DAILY for 30 Days, #30 CAP 0 Refills 11/09/24 Lactulose (Lactulose) 10 Gram/15 Ml Solution, 10 GM PO HS, ML 11/09/24 Promethazine HCl (Promethazine HCl) 25 Mg Tablet, 25 MG PO QIDP PRN for NAUSEA, TAB 06/26/19 [Coq10] No Conflict Check, 1 TAB PO BID 06/26/19 Iron Fum & Ps Cmp/Vit C & B (Integra Capsule) 1 Each Capsule, 1 EACH PO DAILY, CAP 06/26/19 Alprazolam (Xanax) 0.5 Mg Tablet, 0.5 MG PO BID, TAB 06/26/19 Time spent arranging discharge: 31-60 minutes SHAKEEL KILLIAN MD Nov 10, 2024 18:07
== END 2024-11-10 15:05 | disposition home or self-care (01) ==
LOC: EDH 17:05 → INTOOBSV 17:06 → EDHIP 17:06 → 4AH 23:18
PROVIDERS: ADMIT Internal Medicine; ATTEND Internal Medicine
DX: J18.9 Pneumonia, unspecified organism (principal); Z20.822 Contact with and (suspected) exposure to COVID-19; J45.901 Unspecified asthma with (acute) exacerbation; R07.89 Other chest pain; G89.29 Other chronic pain; M54.9 Dorsalgia, unspecified; M54.2 Cervicalgia; K58.9 Irritable bowel syndrome, unspecified; F41.9 Anxiety disorder, unspecified; Z90.710 Acquired absence of both cervix and uterus; Z90.49 Acquired absence of other specified parts of digestive tract; Z98.890 Other specified postprocedural states; Z79.899 Other long term (current) drug therapy; Z88.6 Allergy status to analgesic agent; Z88.5 Allergy status to narcotic agent
CPT/HCPCS: 96361 ×3; 99285; 82550 ×2; 84484 ×4; 80048; 85025 ×3; 87804 ×2; 87426; 36415 ×3; 71045; 71250; 96365; 96375; 96368; 93005; 96376 ×2; 83735; 80053 ×2; 80305; 85651; 87040 ×2; 87046; 87071; 87086; 87186; 87205; 82948 ×2; 83605; 94640; J3490 ×4; J2270; J7030 ×2; J2919 ×5; J0696 ×2; J0456 ×2; G0378 ×27; Q0162; 94664

== ENCOUNTER 2024-12-28 17:03 | Emergency (ER) | payer MEDICAID ==
[~2024-12-28] VITALS: Ht 172.7 cm; Wt 83.9 kg
[~2024-12-28 17:03] MED LIST changes: -ALPR0.5T PO; +AZIT250T9 PO; -COQ10 PO; +CYCL-309 PO; +DICY20TA3 PO; +FAMO-136 PO; +IPRA3AMP24 NEB; -IRON1CAP30 PO; +MONT-46 PO; +PRED20TA3 PO
[2024-12-28] MEDS: traMADol HCL 50 MG TABLET PO ONE (17:31)
--- NOTE | 2024-12-28 18:02 | NUR ---
PT CONTINUES TO YELL, SQUIRM AND HYPERVENTILATE. I INSTRUCTED AND INFORMED HER HOW SHE MIGHT BE CAUSING HERSELF INCREASED PAIN TO HER INJURED AREA TO HOW SHE IS CARRYING ON. PT REFUSED TO LISTEN
--- NOTE | 2024-12-28 18:06 | HMCIMG ---
US VENOUS DOPPLER UNILATERAL HISTORY: Right leg pain COMPARISON: None TECHNIQUE: Right lower extremity venous Doppler ultrasound study was performed. FINDINGS: The right common femoral, femoral, popliteal, and posterior tibial veins are visualized. Normal flow with augmentation and compressibilities are demonstrated. Right greater saphenous vein is patent. IMPRESSION: 1. No evidence of deep venous thrombosis is seen.
--- NOTE | 2024-12-28 18:57 | NUR ---
PATIENT REFUSES [facility] DRUG SCREEN
--- NOTE | 2024-12-28 19:18 | HMCIMG ---
TIBIA/FIBULA 2VWS RT HISTORY: Pain COMPARISON: None TECHNIQUE: 2 images of the right tibia and fibula were obtained. FINDINGS: There is no acute displaced fracture or dislocation. Degenerative changes are seen. IMPRESSION: 1. Findings as described above.
--- NOTE | 2024-12-28 19:22 | HMCIMG ---
FOOT LIMITED 2VWS RT HISTORY: Pain COMPARISON: None TECHNIQUE: 2 images of the right foot were obtained. FINDINGS: There is no acute displaced fracture or dislocation. IMPRESSION: 1. Findings as described above.
--- NOTE | 2024-12-28 19:23 | HMCIMG ---
ANKLE 2VWS RT HISTORY: Pain COMPARISON: None TECHNIQUE: 2 images of the right ankle were obtained. FINDINGS: There is no acute displaced fracture or dislocation. IMPRESSION: 1. Findings as described above.
[2024-12-28] MEDS: hydroMORPHone 0.5 MG SYG (0.5MG/0.5ML) IM ONE (19:29)
--- NOTE | 2024-12-28 19:35 | ERN ---
General Chief Complaint: Lower Extremity Pain/Injury Stated Complaint: RIGHT BROKEN FOOT Time Seen by : 17:09 Time Seen by Midlevel: 17:09 Source: patient History of Present Illness Initial Comments 34-year-old female who presents to the emergency department due to right lower extremity pain. Patient reports she tripped last night, unknown on what object. Denies any other trauma or injuries to the lower extremity/foot. Patient states she usually takes coating/acetaminophen due to back problems. Allergies: Coded Allergies: ibuprofen (Unverified Allergy, Unknown, 06/19/19) Home Meds Active Scripts Azithromycin (Azithromycin) 250 Mg Tablet, 250 MG PO DAILY, #5 TAB Prov:SHAKEEL KILLIAN MD 11/10/24 Ipratropium/Albuterol Sulfate (Iprat-Albut 0.5-3(2.5) mg/3 ml) 0.5 Mg-3 Mg (2.5 Mg Base)/3 Ml Ampul.neb, 1 VIAL NEB BID for 30 Days, #180 ML 0 Refills Prov:SHAKEEL KILLIAN MD 11/10/24 Famotidine (Pepcid) 20 Mg Tablet, 1 TAB PO BID for 30 Days, #60 TAB 0 Refills Prov:SHAKEEL KILLIAN MD 11/10/24 Prednisone (Prednisone) 20 Mg Tablet, 40 MG PO DAILY for 5 Days, #10 TAB Prov:SHAKEEL KILLIAN MD 11/10/24 Montelukast Sodium (Singulair 10Mg) 10 Mg Tab, 1 TAB PO DAILY for 30 Days, #30 TAB 0 Refills Prov:SHAKEEL KILLIAN MD 11/10/24 Reported Medications Promethazine HCl (Promethazine HCl) 25 Mg Tablet, 25 MG PO AM, TAB 11/09/24 Dicyclomine HCl (Dicyclomine HCl) 20 Mg Tablet, 20 MG PO AM, TAB 11/09/24 Cyclobenzaprine HCl (Cyclobenzaprine HCl) 10 Mg Tablet, 1 TAB PO HS for muscle spasms for 30 Days, #30 TAB 0 Refills 11/09/24 Past Medical History Past Medical History: No Pertinent History Past Surgical History: Appendectomy, Hysterectomy, Cholecystectomy, ROS Dictation Constitutional: Negative for fever,chills, and weight loss Eyes: Negative for injury, pain,redness, and discharge ENT: Negative for injury,pain or swelling Cardiovascular: Negative for chest pain, palpitations, and edema Respiratory: Negative for shortness of breath, cough, and wheezing, Abdomen/GI: Negative for abdominal pain, nausea, vomiting, diarrhea, and constipation Back: Negative for injury and pain : Negative for painful urination, bleeding or discharge MS/Extremity: Positive for right lower leg, ankle, foot pain Negative for injury and deformity Skin: Negative for rash, and discoloration Neuro: Negative for headache, weakness, numbness, tingling, and seizure Psych: Negative for suicide ideation, homicidal ideation, and hallucinations Physical Exam Physical Exam Dictation General: awake, alert, no acute distress Head/Face: Normocephalic, atraumatic Eyes: PERRL, EOMI, normal conjunctiva Neck: Supple, normal range of motion Cardiovascular: RRR, normal S1/S2 Respiratory: CTAB, no respiratory distress Skin: Warm, dry, normal turgor, no rash MS/Extremity: Pulses equal, no cyanosis, neurovascular intact, FROM. Right foot tenderness with minimal touch, Limited examination of the right foot and ankle due to patient not allowing palpation and passive range of motion, no deformities, no ecchymosis Neuro: COAx4, GCS 15, strength 5/5, CN 2-12 intact, normal cerebellar exam Psych: Normal behavior, mood, and affect normal Results EKG/XRAY/US/CT/MRI X-RAY Comment REASON: pain ORDERING PHYSICIAN: SOPHY AHN PROCEDURE: [id number] - ANKLE 2VWS RT ANKLE 2VWS RT HISTORY: Pain COMPARISON: None TECHNIQUE: 2 images of the right ankle were obtained. FINDINGS: There is no acute displaced fracture or dislocation. IMPRESSION: 1. Findings as described above. DICTATED BY: WENDY HARRIS MD DATE: 12/28/241917 REASON: pain ORDERING PHYSICIAN: SOPHY AHN PROCEDURE: FT 2VW RT - FOOT LIMITED 2VWS RT FOOT LIMITED 2VWS RT HISTORY: Pain COMPARISON: None TECHNIQUE: 2 images of the right foot were obtained. FINDINGS: There is no acute displaced fracture or dislocation. IMPRESSION: 1. Findings as described above. DICTATED BY: WENDY HARRIS MD DATE: 12/28/241916 REASON: pain ORDERING PHYSICIAN: SOPHY AHN PROCEDURE: TIBFIB RT - TIBIA/FIBULA 2VWS RT TIBIA/FIBULA 2VWS RT HISTORY: Pain COMPARISON: None TECHNIQUE: 2 images of the right tibia and fibula were obtained. FINDINGS: There is no acute displaced fracture or dislocation. Degenerative changes are seen. IMPRESSION: 1. Findings as described above. DICTATED BY: WENDY HARRIS MD DATE: 12/28/241914 Ultrasound Comment REASON: RLE pain ORDERING PHYSICIAN: SOPHY AHN PROCEDURE: VENOUS UNI - US VENOUS DOPPLER UNILATERAL US VENOUS DOPPLER UNILATERAL HISTORY: Right leg pain COMPARISON: None TECHNIQUE: Right lower extremity venous Doppler ultrasound study was performed. FINDINGS: The right common femoral, femoral, popliteal, and posterior tibial veins are visualized. Normal flow with augmentation and compressibilities are demonstrated. Right greater saphenous vein is patent. IMPRESSION: 1. No evidence of deep venous thrombosis is seen. DICTATED BY: WENDY HARRIS MD DATE: 12/28/241802 MDM MDM: Differential diagnosis: Fracture, sprain, strain Rationale: 34-year-old female who presents to the emergency department due to right lower extremity pain. Patient reports she tripped last night, unknown on what object. Denies any other trauma or injuries to the lower extremity/foot. Patient states she usually takes coating/acetaminophen due to back problems. Patient being aggressive and uncooperative during triage. Drug screen ordered however patient refused to give urine sample. Per physical examination mild erythema noted to the dorsal aspect of the foot, no deformities, examination of range of motion limited due to patient being uncooperative, Rright foot tenderness with minimal touch, no ecchymosis. XR of the right foot, ankle, and tibia/fibula no indication of acute abnormalities, fractures, dislocations. Patient was given pain medication and placed on a posterior ankle splint. Advised to follow up with PCP. Return to the emergency department if any worsening symptoms. Patient verbalized understanding. Patient stable for discharge. There are no social concerns with this patient. I independently interpreted the test that were performed, results were reviewed by me and considered findings on radiology if ordered. Medical management and examination interpretation discussions were had by me with other qualified healthcare professionals as indicated for the patient's care. ED Course Orders Procedure Category Date Status Time Us Venous Doppler US 12/28/24 Resulted Unilateral 17:18 Tibia/Fibula 2vws Rt RAD 12/28/24 Resulted 17:18 Tramadol Hcl (Ultram) PHA 12/28/24 Complete 17:30 Ankle 2vws Rt RAD 12/28/24 Resulted 17:18 Foot Limited 2vws Rt RAD 12/28/24 Resulted 17:18 Hydromorphone 0.5mg PHA 12/28/24 Complete Syg (Dilaudid 0.5mg 19:30 Crutches W/Training CPOE 12/28/24 Transmitted (Er) 19:14 Posterior Ankle Splint ZARA.ER 12/28/24 Complete 19:14 Current Medications Medications (Trade) Dose Ordered Sig/Jesús Route PRN Reason Start Time Stop Time Status Last Admin Dose Admin Hydromorphone HCl (DiLAUDid 0.5MG INJ) 0.5 mg ONCE ONCE IM 12/28/24 19:30 12/28/24 19:31 DC 12/28/24 19:29 Tramadol HCl (UltRAM) 50 mg ONCE ONCE PO 12/28/24 17:30 12/28/24 17:31 DC 12/28/24 17:31 Vital Signs Date Time Temp Pulse Resp B/P (MAP) Pulse Ox O2 Delivery O2 Flow Rate FiO2 12/28/24 19:54 98.1 82 18 133/79 100 Room Air* 0 21 12/28/24 19:12 98.1 99 20 128/75 97 Room Air* 0 21 12/28/24 17:37 98.1 99 25 121/65 97 Room Air* 0 21 12/28/24 17:06 108 24 132/95 97 Room Air DX & DISP Disposition: Discharge Departure Impression: Primary Impression: Ankle sprain Condition: Stable Additional Instructions: Discharge home. Rest. Follow up with primary care DrPorfirio in 24 hours. Return to the ER for any acute changes or worsening symptoms. If any medications were prescribed take as directed. Okay to continue home medications unless otherwise discussed during your visit in the emergency room today. Patient was also advised to follow-up with primary care physician in 1 to 2 days for continued monitoring. Referrals: JENNIFER WETZEL DO (PCP) I performed the substantive portion of the visit. I have reviewed and personally made and approve the management plan that is documented in the notes by myself or the DORENE. I acknowledge full responsibility for the patient's management plan. SOPHY AHN December 28, 2024 19:35
--- NOTE | 2024-12-28 19:53 | NUR ---
INSTRUCTED ON CRUTCH USE. PT REPEAT INSTRUCTION
[2024-12-28 19:54] VITALS: BP 133/79; PULSE 82; RESP 18; TEMP 98; O2SAT 100
== END 2024-12-28 19:57 | disposition home or self-care (01) ==
LOC: EDH 17:03
DX: S93.491A Sprain of other ligament of right ankle, initial encounter (principal); Z79.52 Long term (current) use of systemic steroids; Z79.899 Other long term (current) drug therapy; Z88.6 Allergy status to analgesic agent; Z90.49 Acquired absence of other specified parts of digestive tract; Z90.710 Acquired absence of both cervix and uterus; W01.0XXA Fall on same level from slipping, tripping and stumbling without subsequent striking against object, initial encounter; Y93.89 Activity, other specified; Y92.89 Other specified places as the place of occurrence of the external cause; Y99.8 Other external cause status
CPT/HCPCS: 99285; 29515; 93971; 73600; 73620; 73590; 96372; J1171